=== PATIENT | male | born 1970 | race Caucasian/White ===

== ENCOUNTER 2017-12-19 17:18 | Emergency (ER) | payer BC ==
[~2017-12-19] VITALS: Ht 177.8 cm; Wt 98.3 kg
[2017-12-19 17:34] VITALS: TEMP 36.7; Ht 177.8 cm; Wt 98.3 kg
[2017-12-19] MEDS ORDERED: MoRPHine SULFATE 10 MG/ML CARP/VIAL IV STA (17:46)
[2017-12-19] MEDS ORDERED: ONDANSETRON INJ 2 MG/ML 2 ML VIAL IV STA (17:46)
[2017-12-19 18:15] LABS: ISTAT CREATININE 1.1 mg/dl (0.6-1.3); ISTAT IONIZED CALCIUM 1.18 mmol/l (1.12-1.32); ISTAT POTASSIUM 3.6 mEq/L (3.3-5.0)
[2017-12-19] MEDS ORDERED: RANI150T85 PO (18:15)
[2017-12-19] MEDS ORDERED: PRLSR20 PO (18:15)
--- NOTE | 2017-12-19 18:28 | DIAGNOSTIC IMAGING REPORT ---
R SHOULDER MIN 2 VIEWS ROUTINE CLINICAL HISTORY: Fall/shoulder pain trauma. Pain. COMPARISON: None. DISCUSSION: Separation right acromioclavicular joint of uncertain age. Glenohumeral joint is unremarkable. Main osseous structures are intact. There is no evidence for soft tissue swelling. IMPRESSION: Separation right acromioclavicular joint of uncertain age. Study is otherwise negative. The above report was generated using voice recognition software. It may contain grammatical, syntax or spelling errors. Electronically signed by: Bob Mcmahon M.D. 12/19/2017 6:26 PM Dictated Date/Time: 12/19/2017 6:26 PM
[2017-12-19] MEDS ORDERED: OPTIRAY 320 IV PRN (18:45)
--- NOTE | 2017-12-19 19:09 | DIAGNOSTIC IMAGING REPORT ---
ABD/PELVIS IV CONTRAST ONLY CT DOSE: 2654.91 mGy.cm HISTORY: Trauma. Pain. Fall/abdominal pain TECHNIQUE: Multiaxial CT images of the abdomen and pelvis were performed following the use of intravenous contrast. A dose lowering technique was utilized adhering to the principles of ALARA. COMPARISON STUDY: None. FINDINGS: Lung bases are clear. Mild fatty replacement of the liver. Gallbladder is negative for distention. Bowel pattern is nonobstructive. No acute abnormality. No free fluid is identified. Kidneys negative for hydronephrosis. No free fluid within the pelvic cul-de-sac. No acute process. IMPRESSION: No significant abnormality identified within the abdomen or pelvis. The above report was generated using voice recognition software. It may contain grammatical, syntax or spelling errors. Electronically signed by: Bob Mcmahon M.D. 12/19/2017 7:08 PM Dictated Date/Time: 12/19/2017 7:04 PM
--- NOTE | 2017-12-19 19:11 | DIAGNOSTIC IMAGING REPORT ---
CERVICAL SPINE W/O CT DOSE: HISTORY: Trauma. Pain. Fall/neck pain TECHNIQUE: Multiaxial CT images of the cervical spine were performed and reformatted in the sagittal and coronal plane without the use of contrast. A dose lowering technique was utilized adhering to the principles of ALARA. COMPARISON: None. FINDINGS: No fractures. No subluxation. Prevertebral soft tissues and the C1-C2 interval are intact. No pneumothorax. IMPRESSION: No fractures within the cervical spine.. Moderate degenerative change. The above report was generated using voice recognition software. It may contain grammatical, syntax or spelling errors. Electronically signed by: Bob Mcmahon M.D. 12/19/2017 7:10 PM Dictated Date/Time: 12/19/2017 7:08 PM
--- NOTE | 2017-12-19 19:14 | DIAGNOSTIC IMAGING REPORT ---
CT (CHEST) THORAX WITH CT DOSE: HISTORY: Trauma. Pain. Fall/right-sided chest wall pain TECHNIQUE: Multiaxial CT images of the chest were performed following the intravenous administration of contrast. A dose lowering technique was utilized adhering to the principles of ALARA. COMPARISON: None. FINDINGS: The lungs are clear. The mediastinal vascular structures are within normal limits. No mediastinal or hilar lymphadenopathy. No pleural effusion or pneumothorax. Limited views of the upper abdomen demonstrate a normal liver and spleen. IMPRESSION: No significant abnormality identified within the chest. The above report was generated using voice recognition software. It may contain grammatical, syntax or spelling errors. Electronically signed by: Bob Mcmahon M.D. 12/19/2017 7:13 PM Dictated Date/Time: 12/19/2017 7:11 PM
[2017-12-19] MEDS ORDERED: HYDR-5688 PO (19:23)
--- NOTE | 2017-12-19 19:24 | EMERGENCY ROOM VISIT NOTE ---
History First contact with patient: 17:38 Chief Complaint: NECK PAIN Stated Complaint: NECK/LOWER BACK/SHOULDER History of Present Illness The patient is a 47 year old male who presents to the Emergency Room with complaints of falling down 10-12 steps. Patient is complaining of right lateral neck pain, right shoulder pain, right lower rib and right sided abdominal pain. The patient denies any dizziness prior to the fall. The patient states that he is unsure what happened and he just slipped on the stop and fell sideways striking the right side on the steps as he fell. The patient denies any loss of consciousness he denies any head injury, visual changes or headache. The patient states most of his pain is in the right shoulder extending up into his right side of his neck. Within the patient also pointed to his right lower ribs and right upper abdomen as well for pain. The patient denies any mid or low back pain. The patient denies any chest pain or shortness of breath. The patient has not taken anything for pain. Review of Systems 10 system review was performed and was negative unless stated otherwise history of present illness. Past Medical/Surgical History Appendectomy, low back surgery, bilateral clavicle surgery Social History Smoking Status: Never Smoker Smokeless Tobacco Use: Yes Alcohol Use: none Drug Use: none Marital Status: Housing Status: lives with family Occupation Status: employed Current/Historical Medications Scheduled Omeprazole (Prilosec), 20 MG PO DAILY Ranitidine (Zantac), Unknown Dose PO BID Physical Exam Vital Signs Date Time Temp Pulse Resp B/P (MAP) Pulse Ox O2 Delivery O2 Flow Rate FiO2 12/19/17 17:34 36.7 90 20 151/90 97 Room Air Physical Exam GENERAL: 47-year-old white male appears in no acute distress. MENTAL STATUS: Patient is alert and oriented x3. HEAD: Atraumatic, nontender to palpation throughout. No bony abnormality noted. EYES: PERRLA. EOMs intact. EARS: Canals clear. TMs without hemotympanum noted. NECK: Supple, no lymphadenopathy noted. No carotid bruits noted. LUNGS: Clear auscultation without wheezes rales or rhonchi. CARDIAC: Regular rate and rhythm without murmur. Pulses is full and equal throughout. CHEST WALL: No gross bony deformity noted. No erythema or edema noted. The patient is tender to palpation over the right lateral chest wall. Remainder chest wall is nontender. ABDOMEN: Positive bowel sounds all 4 quadrants. Soft, tenderness palpation in the right upper quadrant otherwise nontender to palpation without organomegaly or masses. NEURO: Grossly intact. SPINE: Entire spine nontender to palpation. The patient is tenderness palpation over the right paravertebral region, left side nontender. Remainder of paravertebral region in the thoracic and lumbar spine is nontender. Did not assess range of motion. RIGHT SHOULDER: No gross bony deformity noted. There is a scar over the anterior aspect consistent with his prior distal clavicle surgery. Patient is tender to palpation over the anterior aspect of the shoulder joint. He is also tenderness to palpation over the superior aspect of the shoulder extending into the right side of the neck. SKIN: No ecchymosis, abrasions or laceration noted throughout. Medical Decision & Procedures ER Provider Diagnostic Interpretation: CT (CHEST) THORAX WITH CT DOSE: HISTORY: Trauma. Pain. Fall/right-sided chest wall pain TECHNIQUE: Multiaxial CT images of the chest were performed following the intravenous administration of contrast. A dose lowering technique was utilized adhering to the principles of ALARA. COMPARISON: None. FINDINGS: The lungs are clear. The mediastinal vascular structures are within normal limits. No mediastinal or hilar lymphadenopathy. No pleural effusion or pneumothorax. Limited views of the upper abdomen demonstrate a normal liver and spleen. IMPRESSION: No significant abnormality identified within the chest. The above report was generated using voice recognition software. It may contain grammatical, syntax or spelling errors. Electronically signed by: Bob Mcmahon M.D. 12/19/2017 7:13 PM CERVICAL SPINE W/O CT DOSE: HISTORY: Trauma. Pain. Fall/neck pain TECHNIQUE: Multiaxial CT images of the cervical spine were performed and reformatted in the sagittal and coronal plane without the use of contrast. A dose lowering technique was utilized adhering to the principles of ALARA. COMPARISON: None. FINDINGS: No fractures. No subluxation. Prevertebral soft tissues and the C1-C2 interval are intact. No pneumothorax. IMPRESSION: No fractures within the cervical spine.. Moderate degenerative change. The above report was generated using voice recognition software. It may contain grammatical, syntax or spelling errors. Electronically signed by: Bob Mcmahon M.D. ABD/PELVIS IV CONTRAST ONLY CT DOSE: 2654.91 mGy.cm HISTORY: Trauma. Pain. Fall/abdominal pain TECHNIQUE: Multiaxial CT images of the abdomen and pelvis were performed following the use of intravenous contrast. A dose lowering technique was utilized adhering to the principles of ALARA. COMPARISON STUDY: None. FINDINGS: Lung bases are clear. Mild fatty replacement of the liver. Gallbladder is negative for distention. Bowel pattern is nonobstructive. No acute abnormality. No free fluid is identified. Kidneys negative for hydronephrosis. No free fluid within the pelvic cul-de-sac. No acute process. IMPRESSION: No significant abnormality identified within the abdomen or pelvis. The above report was generated using voice recognition software. It may contain grammatical, syntax or spelling errors. Electronically signed by: Bob Mcmahon M.D. R SHOULDER MIN 2 VIEWS ROUTINE CLINICAL HISTORY: Fall/shoulder pain trauma. Pain. COMPARISON: None. DISCUSSION: Separation right acromioclavicular joint of uncertain age. Glenohumeral joint is unremarkable. Main osseous structures are intact. There is no evidence for soft tissue swelling. IMPRESSION: Separation right acromioclavicular joint of uncertain age. Study is otherwise negative. The above report was generated using voice recognition software. It may contain grammatical, syntax or spelling errors. Electronically signed by: Bob Mcmahon M.D. 12/19/2017 6:26 PM Laboratory Results Test 12/19/17 17:58 Bedside Hemoglobin 13.9 g/dl (14.0-18.0) Bedside Hematocrit 41 % (42-52) Bedside Sodium 141 mEq/L (135-144) Bedside Potassium 3.6 mEq/L (3.3-5.0) Bedside Chloride 102 mEq/L (101-112) Bedside Total CO2 24 mEq/l (24-31) Anion Gap 19.0 mmol/L (16-25) Bedside Blood Urea Nitrogen 18 mg/dl (7-18) Bedside Creatinine 1.1 mg/dl (0.6-1.3) Bedside Glucose (other) 130 mg/dl (70-99) Bedside Ionized Calcium (Marleni) 1.18 mmol/l (1.12-1.32) Medications Administered Medications (Trade) Dose Ordered Sig/Harleen Route Start Time Stop Time Status Last Admin Dose Admin Morphine Sulfate (MoRPHine SULFATE INJ) 6 mg NOW STAT IV 12/19/17 17:46 12/19/17 17:51 DC 12/19/17 18:47 6 MG Ondansetron HCl (Zofran Inj) 4 mg NOW STAT IV 12/19/17 17:46 12/19/17 17:51 DC 12/19/17 18:47 4 MG ED Course Patient was evaluated. IV access was obtained. I-STAT renal profile was ordered and were within normal limits therefore CTs could be obtained with IV contrast. The patient was given morphine 6 mg IV for pain and Zofran 4 mg IV push for associated nausea. X-ray of the right shoulder was ordered interpreted by the radiologist as above without any acute findings.. CT of the cervical spine, chest and abdomen was ordered interpreted by the radiologist as above without any acute findings. The patient was informed of all findings. The patient was offered an arm sling but he declined. The patient was given a Rothsay home pack. The patient was discharged home with a family member driving. Medical Decision Due to the patient following 10-12 steps and having pain in the right chest region as well as right upper abdomen I felt CTs of the chest and abdomen for trauma was indicated. Also he was having some pain in the right side of the neck therefore a CT of the cervical spine was ordered. I did not suspect any intracranial bleed since he did not hit his head or lose consciousness. X-rays of the right shoulder was ordered to evaluate for fracture. [place] Drug Monitoring Program Search Results: patient reviewed within database Medication Reconcilliation Current Medication List: was personally reviewed by me Blood Pressure Screening Patient's blood pressure: Elevated blood pressure Blood pressure disposition: Elevated BP felt to be situational Impression Primary Impression: Contusion of shoulder, right Additional Impressions: Acute strain of neck muscle Chest wall contusion Contusion of abdominal wall Departure Information Dispostion Home / Self-Care Condition GOOD Prescriptions Hydrocodone/Acetaminophen 5MG/325MG (Rothsay 5MG/325MG) Tab 1-2 TABLET PO Q6 Y for Pain, #14 TAB For Initial Treatment Prov: Ruby Mcmahon PA-C 12/19/17 Forms HOME CARE DOCUMENTATION FORM, IMPORTANT VISIT INFORMATION, WORK / SCHOOL INSTRUCTIONS Patient Instructions Bruises Contusions, My Fair Observer Additional Instructions Ice intermittently to the affected areas over the next 24 hours. Ibuprofen 600 mg every 6 hours with food for pain. Take Rothsay as needed for more severe pain. Do not drive while taking the Rothsay. If symptoms persist or worsen, follow-up with your family doctor for recheck. Problem Qualifiers Primary Impression: Contusion of shoulder, right Encounter type: initial encounter Qualified Codes: S40.011A - Contusion of right shoulder, initial encounter Additional Impressions: Acute strain of neck muscle Encounter type: initial encounter Qualified Codes: S16.1XXA - Strain of muscle, fascia and tendon at neck level, initial encounter Chest wall contusion Encounter type: initial encounter Laterality: right Qualified Codes: S20.211A - Contusion of right front wall of thorax, initial encounter Contusion of abdominal wall Encounter type: initial encounter Qualified Codes: S30.1XXA - Contusion of abdominal wall, initial encounter
[2017-12-19] MEDS ORDERED: NORCO 5/325MG HOME PACK PO ONE (19:30)
[2017-12-19 19:32] VITALS: BP 151/90; PULSE 90; O2SAT 97
== END 2017-12-19 19:33 | disposition home or self-care (01) ==
LOC: C.EDB 17:20 → C.EDD 19:33
DX: S16.1XXA Strain of muscle, fascia and tendon at neck level, initial encounter (principal); S40.011A Contusion of right shoulder, initial encounter; S20.211A Contusion of right front wall of thorax, initial encounter; S30.1XXA Contusion of abdominal wall, initial encounter; W10.9XXA Fall (on) (from) unspecified stairs and steps, initial encounter; Z79.899 Other long term (current) drug therapy

== ENCOUNTER 2022-11-18 21:58 | Inpatient (IN) ==
[2022-11-18] MEDS ORDERED: CEROVITE ADV FORMULA TAB PO STA (22:03)
[2022-11-18] MEDS ORDERED: SODIUM CHLORIDE 0.9% 1000ML 1,000 ML IV SCH (22:15)
[2022-11-18 22:28] LABS: iSTAT Creatinine 1.1 mg/dl (0.6-1.3); iSTAT Ionized Calcium 1.11 mmol/l (1.12-1.32); iSTAT Potassium 3.5 mmol/L (3.3-5.0)
[2022-11-18 22:31] LABS: Basophils # (auto) 0.05 K/uL (0-0.2); Basophils % (auto) 0.6 %; Eosinophils # (auto) 0.07 K/uL (0-0.50); Eosinophils % (auto) 0.8 %; Hematocrit (blood only) 42.6 % (42.0-52.0); Hemoglobin 15.1 g/dl (14.0-18.0); Immature Granulocytes # (auto) 0.03 K/uL (0.01-0.20); Immature Granulocytes % (auto) 0.3 %; Lymphocytes % (auto) 16.2 %; Mean Corpuscular Hgb Conc 35.4 g/dL (32.0-36.0); Mean Corpuscular Volume 87.5 fL (80.0-100.0); Mean Platelet Volume 12.2 fL (9.4-12.4); Monocytes % (auto) 5.8 %; Neutrophils # (auto) 6.58 K/uL (1.40-6.50); Neutrophils % (auto) 76.3 %; Platelet Count 148 K/uL (130-400); RDW Coefficient of Variation 11.7 % (11.5-14.5); RDW Standard Deviation 37.5 fL (36.4-46.3); Red Blood Count 4.87 M/uL (4.70-6.10); White Blood Count 8.63 K/ul (4.8-10.8)
[2022-11-18 22:51] LABS: Albumin Globulin Ratio 1.5 (0.9-2); Albumin Level 4.2 gm/dl (3.4-5.0); BUN Creatinine Ratio 16.3 (10-20); Bilirubin,Total 0.6 mg/dl (0.2-1.0); Creatinine Clr Calc Pharmacy 94.1 ml/min; Est GFR (African American) 109.7 ml/min; Est GFR (Non-African American) 94.6 ml/min; Globulin 2.8 gm/dl (2.5-4.0); Magnesium 2.1 mg/dl (1.7-2.4); Potassium 3.6 mmol/L (3.5-5.1)
[2022-11-18] MEDS ORDERED: OPTIRAY 350 100ml IV ONE (22:52)
[2022-11-18 22:57] LABS: Troponin I High Sensitivity 3.7 pg/ml (0-20)
[2022-11-18] MEDS: THIAMINE HCL 100 MG, FOLIC ACID 1 MG in SODIUM CHLORIDE 0.9% 1000ML 1,000 ML IV SCH (23:00)
--- NOTE | 2022-11-18 23:15 | Emergency Department Note ---
History of Present Illness General Chief complaint: Seizure Stated complaint: ETOH, Semi Responsive Time Seen by Provider: 11/18/22 22:01 History of Present Illness This 51-year-old alcoholic presents to the ER for seizure with frequent falls. Patient is intoxicated and difficult to obtain history. EMS states he is a diabetic and blood sugar was 200. He is apparently falling much more often. He drinks daily. No known alcohol withdrawal seizures. No seizure disorder. Patient is yelling at me and not making much sense. He is moving all extremities. Home Medications Medication Instructions Recorded Confirmed Type buspirone 15 mg tablet 15 mg PO TID 11/19/22 11/19/22 History citalopram 10 mg tablet 10 mg PO DAILY 11/19/22 11/19/22 History citalopram 20 mg tablet 20 mg PO DAILY 11/19/22 11/19/22 History dulaglutide 4.5 mg/0.5 mL 4.5 mg subcut WK 11/19/22 11/19/22 History subcutaneous pen injector (Trulicity) empagliflozin 25 mg tablet 25 mg PO DAILY 11/19/22 11/19/22 History (Jardiance) famotidine 20 mg tablet 20 mg PO DAILY 11/19/22 11/19/22 History insulin glargine 100 unit/mL 35 unit subcut QDD 11/19/22 11/19/22 History subcutaneous solution (Lantus U-100 Insulin) lisinopril 5 mg tablet 5 mg PO DAILY 11/19/22 11/19/22 History meloxicam 7.5 mg tablet 7.5 - 15 mg PO DAILY 11/19/22 11/19/22 History omeprazole 20 mg tablet,delayed 20 mg PO DAILYBB 11/19/22 11/19/22 History release Allergies Allergy/AdvReac Type Severity Reaction Status Date / Time No Known Allergies Allergy Unverified 11/12/22 14:53 Review of Systems A total of 10 systems reviewed and were otherwise negative Physical Exam Vital Signs Vital Signs - 24 hr 11/18/22 21:58 11/18/22 22:18 11/18/22 22:01 Temperature 36.5 C Temperature Source Oral Pulse Rate 86 75 Pulse Rate from SpO2 Sensor Respiratory Rate 18 Respiratory Effort / Characteristics Non-Labored Respiratory Depth Normal Blood Pressure 114/71 Blood Pressure Mean 85 Pulse Oximetry 96 98 Oxygen Delivery Method Room Air Room Air Sepsis Recent Fever Within 48 Hours No Sepsis New/Unexplained Change in Mental Status No Sepsis Action Taken by Nursing No Action Required 11/18/22 22:02 11/18/22 22:02 11/18/22 22:30 Temperature Temperature Source Pulse Rate 73 Pulse Rate from SpO2 Sensor 72 Respiratory Rate 12 Respiratory Effort / Characteristics Respiratory Depth Blood Pressure 114/71 120/77 Blood Pressure Mean 85 91 Pulse Oximetry 96 Oxygen Delivery Method Sepsis Recent Fever Within 48 Hours Sepsis New/Unexplained Change in Mental Status Sepsis Action Taken by Nursing 11/18/22 22:30 11/18/22 23:00 11/18/22 23:00 Temperature Temperature Source Pulse Rate 83 83 Pulse Rate from SpO2 Sensor 81 83 Respiratory Rate 21 18 Respiratory Effort / Characteristics Respiratory Depth Blood Pressure 114/72 Blood Pressure Mean 86 Pulse Oximetry 100 97 Oxygen Delivery Method Sepsis Recent Fever Within 48 Hours Sepsis New/Unexplained Change in Mental Status Sepsis Action Taken by Nursing VITALS: Vitals are noted on the nurse's note and reviewed by myself. Vital signs stable. GENERAL: White male with EtOH odor yells and swings with sternal rub, in no acute distress, nondiaphoretic, well-developed well-nourished. SKIN: The skin was without rashes, erythema, edema, or bruising. There is no tenting of the skin. Capillary reflex less than 2 seconds. HEAD: Normocephalic atraumatic. EARS: External auditory canals clear, tympanic membranes pearly wolff without erythema or effusion bilaterally. EYES: Pupils equal round and reactive to light and accommodation. Conjunctivae with injection, sclerae without icterus. Extraocular movements intact. NOSE: Patent, turbinates without inflammation or discharge. No sinus tender ness. MOUTH: Mucous membranes moist. Pharynx without erythema or exudate. Uvula midline. Airway patent. Tongue does not deviate. NECK: Supple without nuchal rigidity. No lymphadenopathy. No thyromegaly. Cervical spine is nontender. No JVD. HEART: Regular rate and rhythm LUNGS: Clear to auscultation bilaterally without wheezes, rales or rhonchi. No retractions or accessory muscle use. ABDOMEN: Positive bowel sounds x 4. Normal tympanic percussion. Soft, nontender, without masses or organomegaly. Seo sign negative. No guarding or rebound tenderness. No CVA tenderness MUSCULOSKELETAL: No muscle atrophy, erythema, or edema noted. NEURO: Patient is intoxicated. Once he was more sober he is alert and oriented to person place and time. Normal sensation to light and sharp touch. No focal neurological deficits. Course Administered Medications Discontinued Medications Sodium Chloride (Nss 1000ml) 1,000 mls @ 999 mls/hr IV .Q1H1M LEANAN Stop: 11/18/22 23:15 Last Infusion: 11/18/22 23:24 Dose: 0 mls/hr Documented By: Admin: 11/18/22 22:20 Dose: 999 mls/hr Documented By: MIKKI Thiamine HCl 100 mg/ Folic (Acid 1 mg/ Sodium Chloride) 1,001.2 mls @ 1,011.2 mls/hr IV .Q1H LEANNA; Protocol Stop: 12/18/22 22:14 Last Admin: 11/19/22 01:02 Dose: Not Given Documented By: Infusion: 11/18/22 23:57 Dose: 0 mls/hr Documented By: Admin: 11/18/22 23:00 Dose: 1,011.2 mls/hr Documented By: MIKAYLA Ioversol (Optiray 350 100ml) 100 ml IV ONCE ONE Stop: 11/18/22 22:53 Last Admin: 11/18/22 22:53 Dose: 86 ml Documented By: AIDE Medical Decision Making Medical Records Attestation: I reviewed the patient's medical records. Home Medications Current Medication List: was personally reviewed by me Laboratory Data Attestation: I reviewed the patient's lab results. 11/18/22 22:10 11/18/22 22:10 Lab Results 11/18/22 11/18/22 11/18/22 Range/Units 22:10 22:10 22:10 WBC 8.63 (4.8-10.8) K/ul RBC 4.87 (4.70-6.10) M/uL Hgb 15.1 (14.0-18.0) g/dl POC Hgb (14.0-18.0) g/dl Hct 42.6 (42.0-52.0) % POC Hct (42-52) % MCV 87.5 (80.0-100.0) fL MCH 31.0 (25.0-34.0) pg MCHC 35.4 (32.0-36.0) g/dL RDW Std Deviation 37.5 (36.4-46.3) fL RDW Coeff of Janice 11.7 (11.5-14.5) % Plt Count 148 (130-400) K/uL MPV 12.2 (9.4-12.4) fL Immature Gran % (Auto) 0.3 % Neut % (Auto) 76.3 % Lymph % (Auto) 16.2 % [place] % (Auto) 5.8 % Eos % (Auto) 0.8 % Baso % (Auto) 0.6 % Neut # (Auto) 6.58 H (1.40-6.50) K/uL Lymph # (Auto) 1.40 (1.2-3.4) K/uL [place] # (Auto) 0.50 (0.11-0.59) K/uL Eos # (Auto) 0.07 (0-0.50) K/uL Baso # (Auto) 0.05 (0-0.2) K/uL Immature Gran # (Auto) 0.03 (0.01-0.20) K/uL POC Sodium (135-144) mmol/L Sodium 138 (136-145) mmol/L POC Potassium (3.3-5.0) mmol/L Potassium 3.6 (3.5-5.1) mmol/L POC Chloride (101-112) mmol/L Chloride 99 (98-107) mmol/L Carbon Dioxide 28 (21-32) mmol/L POC Total CO2 (24-31) mmol/L Anion Gap 11 (3-11) POC Anion Gap (16-25) mmol/L POC BUN (7-18) mg/dl BUN 15 (6-23) mg/dl Creatinine 0.92 (0.6-1.4) mg/dl POC Creatinine (0.6-1.3) mg/dl Est Cr Clr Drug Dosing 94.1 ml/min Est GFR ( Amer) 109.7 ml/min Est GFR (Non-Af Amer) 94.6 ml/min BUN/Creatinine Ratio 16.3 (10-20) Glucose 177 H (70-99(Fasting)) mg/dl POC Glucose (other) (70-99) mg/dl Calcium 9.0 (8.6-10.3) mg/dl POC Ioniz Calcium Marleni (1.12-1.32) mmol/l Magnesium 2.1 (1.7-2.4) mg/dl Total Bilirubin 0.6 (0.2-1.0) mg/dl AST 23 (13-39) U/L ALT 29 (7-52) U/L Alkaline Phosphatase 63 (34-104) U/L Ammonia (18-72) umol/L Total Creatine Kinase 76 (30-223) U/L Troponin I High Sens 3.7 (0-20) pg/ml Total Protein 7.0 (6.0-8.3) gm/dl Albumin 4.2 (3.4-5.0) gm/dl Globulin 2.8 (2.5-4.0) gm/dl Albumin/Globulin Ratio 1.5 (0.9-2) Ethyl Alcohol mg/dL 155.8 H (<10.0) mg/dl SARS-CoV-2 (PCR) (Negative) 11/18/22 11/18/22 11/19/22 Range/Units 22:16 22:38 00:11 WBC (4.8-10.8) K/ul RBC (4.70-6.10) M/uL Hgb (14.0-18.0) g/dl POC Hgb 15.0 (14.0-18.0) g/dl Hct (42.0-52.0) % POC Hct 44 (42-52) % MCV (80.0-100.0) fL MCH (25.0-34.0) pg MCHC (32.0-36.0) g/dL RDW Std Deviation (36.4-46.3) fL RDW Coeff of Janice (11.5-14.5) % Plt Count (130-400) K/uL MPV (9.4-12.4) fL Immature Gran % (Auto) % Neut % (Auto) % Lymph % (Auto) % [place] % (Auto) % Eos % (Auto) % Baso % (Auto) % Neut # (Auto) (1.40-6.50) K/uL Lymph # (Auto) (1.2-3.4) K/uL [place] # (Auto) (0.11-0.59) K/uL Eos # (Auto) (0-0.50) K/uL Baso # (Auto) (0-0.2) K/uL Immature Gran # (Auto) (0.01-0.20) K/uL POC Sodium 139 (135-144) mmol/L Sodium (136-145) mmol/L POC Potassium 3.5 (3.3-5.0) mmol/L Potassium (3.5-5.1) mmol/L POC Chloride 97 L (101-112) mmol/L Chloride (98-107) mmol/L Carbon Dioxide (21-32) mmol/L POC Total CO2 27 (24-31) mmol/L Anion Gap (3-11) POC Anion Gap 20.0 (16-25) mmol/L POC BUN 15 (7-18) mg/dl BUN (6-23) mg/dl Creatinine (0.6-1.4) mg/dl POC Creatinine 1.1 (0.6-1.3) mg/dl Est Cr Clr Drug Dosing ml/min Est GFR ( Amer) ml/min Est GFR (Non-Af Amer) ml/min BUN/Creatinine Ratio (10-20) Glucose (70-99(Fasting)) mg/dl POC Glucose (other) 179 H (70-99) mg/dl Calcium (8.6-10.3) mg/dl POC Ioniz Calcium Marleni 1.11 L (1.12-1.32) mmol/l Magnesium (1.7-2.4) mg/dl Total Bilirubin (0.2-1.0) mg/dl AST (13-39) U/L ALT (7-52) U/L Alkaline Phosphatase (34-104) U/L Ammonia 30.0 (18-72) umol/L Total Creatine Kinase (30-223) U/L Troponin I High Sens (0-20) pg/ml Total Protein (6.0-8.3) gm/dl Albumin (3.4-5.0) gm/dl Globulin (2.5-4.0) gm/dl Albumin/Globulin Ratio (0.9-2) Ethyl Alcohol mg/dL (<10.0) mg/dl SARS-CoV-2 (PCR) NEGATIVE (Negative) Imaging Data Attestation: I personally reviewed and interpreted this imaging study as follows: Radiologist's Impression: Abdomen/Pelvis CT 11/18/22 22:04 Exam(s): CT ABDOMEN + PELVIS With Contrast IV Amt: 86 ML OPTIRAY 350 EXAM: CT Abdomen and Pelvis With Intravenous Contrast CLINICAL HISTORY: Reason for exam: Trauma. TECHNIQUE: Axial computed tomography images of the abdomen and pelvis with intravenous contrast. Automated exposure control was utilized for the study. A dose lowering technique was utilized adhering to the principles of ALARA. CONTRAST: Patient received 86 ML OPTIRAY 350 of IV contrast COMPARISON: 12/19/2017. FINDINGS: Lung bases: Minimal posterior dependent atelectasis. ABDOMEN: Liver: Unremarkable. No mass. Gallbladder and bile ducts: Unremarkable. No calcified stones. No ductal dilation. Pancreas: Unremarkable. No mass. No ductal dilation. Spleen: Unremarkable. No splenomegaly. Adrenals: Unremarkable. No mass. Kidneys and ureters: Unremarkable. No solid mass. No hydronephrosis. Stomach and bowel: Increased fecal debris within the colon consistent with mild constipation. No obstruction. No mucosal thickening. PELVIS: Appendix: Nonvisualized appendix with no inflammation to suggest appendicitis. Bladder: Slightly over distended urinary bladder. Reproductive: Unremarkable as visualized. ABDOMEN and PELVIS: Intraperitoneal space: Unremarkable. No free air. No significant fluid collection. Bones/joints: Multilevel degenerative disease throughout the lumbar spine, more severe from L4-S1. No substantial scoliosis. Normal lordosis. Normal alignment with no acute fracture. Soft tissues: Unremarkable. Vasculature: Unremarkable. No abdominal aortic aneurysm. Lymph nodes: Unremarkable. No enlarged lymph nodes. IMPRESSION: No evidence of visceral or intra-abdominal injury. Electronically signed by: Tameka Ren MD 11/18/22 23:[address] 11/18/22 22:04 Exam(s): CT C SPINE EXAM: CT Cervical Spine Without Intravenous Contrast CLINICAL HISTORY: Reason for exam: Trauma. TECHNIQUE: Axial computed tomography images of the cervical spine without intravenous contrast. Automated exposure control was utilized for the study. A dose lowering technique was utilized adhering to the principles of ALARA. COMPARISON: 12/11/2017. FINDINGS: Vertebrae: Degenerative arthrosis at anterior C1-C2 articulation, otherwise normal odontoid process. Mild spondylosis/degenerative disease from C5-C7. No central canal stenosis. No acute fracture. Normal cervical lordosis. Discs/spinal canal/neural foramina: Multilevel bilateral apophyseal hypertrophy, right more than left and contributing to variable degrees of neuroforaminal encroachment. Soft tissues: Unremarkable. IMPRESSION: Nonspecific degenerative disease as described with no acute fracture or subluxation. Electronically signed by: Tameka Ren MD 11/18/22 23:[address] 11/18/22 22:04 Exam(s): CT CHEST With Contrast IV Amt: 86 ML OPTIRAY 350 EXAM: CT Chest With Intravenous Contrast CLINICAL HISTORY: Reason for exam: Trauma. TECHNIQUE: Axial computed tomography images of the chest with intravenous contrast. Automated exposure control was utilized for the study. A dose lowering technique was utilized adhering to the principles of ALARA. CONTRAST: Patient received 86 ML OPTIRAY 350 of IV contrast COMPARISON: 12/11/2017. FINDINGS: Lungs: Minimal posterior dependent atelectasis otherwise normal lung parenchyma. Pleural space: Unremarkable. No pneumothorax. No significant effusion. Heart: Unremarkable. No cardiomegaly. No significant pericardial effusion. No significant coronary artery calcifications. Bones/joints: Unremarkable. No acute fracture. No dislocation. Soft tissues: Unremarkable. Vasculature: Unremarkable. No thoracic aortic aneurysm. Lymph nodes: Unremarkable. No enlarged lymph nodes. IMPRESSION: 1. Minimal posterior dependent atelectasis otherwise no acute cardiopulmonary disease. 2. No pleural effusion or pneumothorax.. Electronically signed by: Tameka Ren MD 11/18/22 23:[address] 11/18/22 22:04 Exam(s): CT HEAD Without Contrast EXAM: CT Head Without Intravenous Contrast CLINICAL HISTORY: Reason for exam: Trauma. TECHNIQUE: Axial computed tomography images of the head/brain without intravenous contrast. Automated exposure control was utilized for the study. A dose lowering technique was utilized adhering to the principles of ALARA. COMPARISON: None. FINDINGS: Brain: Unremarkable. No hemorrhage. No significant white matter disease. No edema. Ventricles: Unremarkable. No ventriculomegaly. Bones/joints: Unremarkable. No acute fracture. Soft tissues: Unremarkable. Sinuses: Unremarkable as visualized. No acute sinusitis. Mastoid air cells: Unremarkable as visualized. No mastoid effusion. IMPRESSION: No acute intracranial process. Electronically signed by: Tameka Ren MD 11/18/22 23:23 PM MDM Narrative Prior records/ancillary studies reviewed. Triage Nursing notes reviewed. Additional history obtained from EMS. The patient's history was concerning for altered mental status and a possible alcohol overdose. Differential diagnosis: Etiologies such as alcohol intoxication, toxicologic, infection, hypoglycemia, electrolyte abnormalities, cardiac sources, intracerebral event, neurologic, as well as others were entertained. Physical examination: As above. The patient is clinically intoxicated. no trauma noted. ER treatment provided: Monitoring An order was placed for continuous cardiac monitoring. The monitor shows a rate of 60-100 with a sinus rhythm. Aspiration and seizure precautions IV fluids, banana bag was ordered The patient was frequently reassessed. Diagnostic interpretation by me: Cardiac monitoring did not reveal any evidence of dysrhythmia. EKG ordered for seizure EKG: Normal sinus, normal intervals, no acute ST-T wave changes. Impression normal sinus rhythm independent interpreted by myself I think arrhythmia is unlikely. EKG shows normal sinus rhythm with no interval abnormalities such as QT prolongation or WPW. There are no findings to suggest Brugada syndrome. Cardiac monitoring in the emergency department reveals no tachycardic or bradycardic dysrhythmia. Hypertrophic cardiomyopathy was considered but there are no clear historical elements pointing toward this. EKG is not suggestive. The QRS voltage is not extremely large and there are no suggestive Q waves. The labs Independently Interpreted by myself revealed no worrisome leukocytosis, hyperglycemia without DKA. The patient's blood alcohol level was 155 mg/dL. Ammonia level 33 Imaging studies: Head CT negative for intracranial bleed. CTs of the neck chest abdomen pelvis were also reviewed with no acute findings noted Chest x-ray with no acute consolidation, pneumothorax or free air per my independent interpretation Patient was first seen at 2200 and observation time began at 2200 and was necessary in order to determine any infectious, toxicologic or traumatic problem. Upon reevaluation, 2 hours of observation feel that the patient should be admitted. Seizure form was filled out and faxed off to the state as patient had a seizure tonight per the daughter. The daughter is also concerned about the patient's mental health as he apparently is making statements that he wanted to hurt himself. Patient did not admit this to me. Admitting team was made aware. This appears to be consistent with alcoholism who had a seizure tonight. Patient has been falling more frequently and advanced imaging was ordered. Labs and diagnostics were independent interpreted by myself. Radiology read the CAT scans. Patient is agreeable treatment plan of admission. Medicine was consulted and the case was discussed. He will be admitted for his alcoholism and seizure tonight. By the evaluation outlined above emergent etiologies such as infection, hypoglycemia, electrolyte abnormalities, cardiac sources, as well as others were deemed relatively unlikely. The chart was completed utilizing [employer] Speech voice recognition software. Grammatical errors, random word insertions, pronoun errors, and incomplete sentences are an occassional consequence of this system due to software limitations, ambient noise, and hardware issues. Any formal questions or concerns about the content, text, or information contained within the body of this dictation should be directly addressed to the physician assistant manager for clarification. Impression & Plan Acute alcoholism, Fall, Seizure Discharge Plan Visit Data Chief Complaint: Seizure Stated Complaint: ETOH, Semi Responsive ED Provider: Shahida Simmons ED Midlevel Provider: iGuliana Barrios Discharge Problem: Acute alcoholism, Fall, Seizure Patient Disposition: Admitted As Inpatient Condition: Fair Forms Stand Alone Forms: [facility] Prescriptions Prescriptions: No Action citalopram 10 mg Tablet 10 mg PO DAILY Rx Instructions: take with 20mg citalopram 20 mg Tablet 20 mg PO DAILY Rx Instructions: take with 10mg famotidine 20 mg Tablet 20 mg PO DAILY buspirone 15 mg Tablet 15 mg PO TID Jardiance 25 mg Tablet 25 mg PO DAILY insulin glargine [Lantus U-100 Insulin] 100 unit/mL Solution 35 unit SUBCUT QDD meloxicam 7.5 mg Tablet 7.5 - 15 mg PO DAILY lisinopril 5 mg Tablet 5 mg PO DAILY omeprazole 20 mg Tablet,Delayed Release (Dr/Ec) 20 mg PO DAILYBB Trulicity 4.5 mg/0.5 mL Pen Injector 4.5 mg SUBCUT WK Referrals Referrals: Erik Del Castillo MD [Primary Care Provider] -
--- NOTE | 2022-11-18 23:24 | CT Scan Report ---
Exam(s): CT HEAD Without Contrast EXAM: CT Head Without Intravenous Contrast CLINICAL HISTORY: Reason for exam: Trauma. TECHNIQUE: Axial computed tomography images of the head/brain without intravenous contrast. Automated exposure control was utilized for the study. A dose lowering technique was utilized adhering to the principles of ALARA. COMPARISON: None. FINDINGS: Brain: Unremarkable. No hemorrhage. No significant white matter disease. No edema. Ventricles: Unremarkable. No ventriculomegaly. Bones/joints: Unremarkable. No acute fracture. Soft tissues: Unremarkable. Sinuses: Unremarkable as visualized. No acute sinusitis. Mastoid air cells: Unremarkable as visualized. No mastoid effusion. IMPRESSION: No acute intracranial process. Electronically signed by: Tameka Ren MD 11/18/22 23:23 PM
--- NOTE | 2022-11-18 23:28 | CT Scan Report ---
Exam(s): CT C SPINE EXAM: CT Cervical Spine Without Intravenous Contrast CLINICAL HISTORY: Reason for exam: Trauma. TECHNIQUE: Axial computed tomography images of the cervical spine without intravenous contrast. Automated exposure control was utilized for the study. A dose lowering technique was utilized adhering to the principles of ALARA. COMPARISON: 12/11/2017. FINDINGS: Vertebrae: Degenerative arthrosis at anterior C1-C2 articulation, otherwise normal odontoid process. Mild spondylosis/degenerative disease from C5-C7. No central canal stenosis. No acute fracture. Normal cervical lordosis. Discs/spinal canal/neural foramina: Multilevel bilateral apophyseal hypertrophy, right more than left and contributing to variable degrees of neuroforaminal encroachment. Soft tissues: Unremarkable. IMPRESSION: Nonspecific degenerative disease as described with no acute fracture or subluxation. Electronically signed by: Tameka Ren MD 11/18/22 23:27 PM
--- NOTE | 2022-11-18 23:30 | CT Scan Report ---
Exam(s): CT CHEST With Contrast IV Amt: 86 ML OPTIRAY 350 EXAM: CT Chest With Intravenous Contrast CLINICAL HISTORY: Reason for exam: Trauma. TECHNIQUE: Axial computed tomography images of the chest with intravenous contrast. Automated exposure control was utilized for the study. A dose lowering technique was utilized adhering to the principles of ALARA. CONTRAST: Patient received 86 ML OPTIRAY 350 of IV contrast COMPARISON: 12/11/2017. FINDINGS: Lungs: Minimal posterior dependent atelectasis otherwise normal lung parenchyma. Pleural space: Unremarkable. No pneumothorax. No significant effusion. Heart: Unremarkable. No cardiomegaly. No significant pericardial effusion. No significant coronary artery calcifications. Bones/joints: Unremarkable. No acute fracture. No dislocation. Soft tissues: Unremarkable. Vasculature: Unremarkable. No thoracic aortic aneurysm. Lymph nodes: Unremarkable. No enlarged lymph nodes. IMPRESSION: 1. Minimal posterior dependent atelectasis otherwise no acute cardiopulmonary disease. 2. No pleural effusion or pneumothorax.. Electronically signed by: Tameka Ren MD 11/18/22 23:30 PM
--- NOTE | 2022-11-18 23:33 | CT Scan Report ---
Exam(s): CT ABDOMEN + PELVIS With Contrast IV Amt: 86 ML OPTIRAY 350 EXAM: CT Abdomen and Pelvis With Intravenous Contrast CLINICAL HISTORY: Reason for exam: Trauma. TECHNIQUE: Axial computed tomography images of the abdomen and pelvis with intravenous contrast. Automated exposure control was utilized for the study. A dose lowering technique was utilized adhering to the principles of ALARA. CONTRAST: Patient received 86 ML OPTIRAY 350 of IV contrast COMPARISON: 12/19/2017. FINDINGS: Lung bases: Minimal posterior dependent atelectasis. ABDOMEN: Liver: Unremarkable. No mass. Gallbladder and bile ducts: Unremarkable. No calcified stones. No ductal dilation. Pancreas: Unremarkable. No mass. No ductal dilation. Spleen: Unremarkable. No splenomegaly. Adrenals: Unremarkable. No mass. Kidneys and ureters: Unremarkable. No solid mass. No hydronephrosis. Stomach and bowel: Increased fecal debris within the colon consistent with mild constipation. No obstruction. No mucosal thickening. PELVIS: Appendix: Nonvisualized appendix with no inflammation to suggest appendicitis. Bladder: Slightly over distended urinary bladder. Reproductive: Unremarkable as visualized. ABDOMEN and PELVIS: Intraperitoneal space: Unremarkable. No free air. No significant fluid collection. Bones/joints: Multilevel degenerative disease throughout the lumbar spine, more severe from L4-S1. No substantial scoliosis. Normal lordosis. Normal alignment with no acute fracture. Soft tissues: Unremarkable. Vasculature: Unremarkable. No abdominal aortic aneurysm. Lymph nodes: Unremarkable. No enlarged lymph nodes. IMPRESSION: No evidence of visceral or intra-abdominal injury. Electronically signed by: Tameka Ren MD 11/18/22 23:32 PM
[2022-11-19] MEDS: THIAMINE HCL 100 MG, FOLIC ACID 1 MG in SODIUM CHLORIDE 0.9% 1000ML 1,000 ML IV SCH (01:02)
[2022-11-19 01:34] LABS: Appearance Urine Clear (Clear); Bilirubin Urine Negative (Negative); Blood Urine Negative (Negative); Color Urine Yellow; Glucose Urine UA 3+ (Negative); Ketones Urine 2+ (Negative); Leukocyte Esterase Urine Negative (Negative); Nitrite Urine Negative (Negative); Protein Urine Negative (Negative); Specific Gravity Urine > 1.045 (1.000-1.030); Urobilinogen Urine Negative (Negative); pH Urine 5.5 (4.5-7.5)
[2022-11-19 02:04] LABS: Amphetamines+Metham, Urine Neg (Neg); Barbiturates, Urine Neg (Neg); Benzodiazepine, Urine Neg (Neg); Cocaine, Urine Neg (Neg); MDMA (Ecstacy), Urine Neg (Neg); Methadone, Urine Neg (Neg); Opiate, Urine Neg (Neg); Phencyclidine, Urine Neg (Neg)
--- NOTE | 2022-11-19 02:21 | History & Physical Report ---
Date of Service November 19, 2022 Assessment & Plan (1) Seizure: Plan: Possible alcohol withdrawal seizures HTN, stable DM2 insulin requiring suboptimal control as of recent hemoglobin A1c of 9.27 June 2022 hx GERD Possible suicidality, history mood disorder Medical telemetry Seizure precautions Ativan as needed for active seizures EEG, MRI brain for seizure work-up Neurology consult Re: New onset seizures Psychiatry consult once patient more awake re: possible suicidality Suicide precautions until patient seen by Psychiatry. Basal bolus insulin adjusted for n.p.o. status for now while patient intoxicated, ISS BG goal 1 10-1 40, update hemoglobin A1c DVT prophylaxis. Lovenox subcu Full code Patient daughter requesting updates from providers. Ms. Madiha Leigh, contact #[phone]. Text document was generated using [employer] voice recognition software. It may contain grammatical or spelling errors. Kindly contact undersigned for clarification of any documentation item in question. History of Present Illness Chief Complaint: Seizures as per family Primary Care Provider: Cachorro Lord MD History obtained from patient, family, and records. History from patient secondary to intoxicated state. Medical history significant for hypertension, DM2 insulin requiring, GERD, mood disorder, alcohol abuse. Patient was at daughter's home yesterday when he suddenly slumped over and was noted to have 2 episodes of shaking episodes possible seizures as per daughter. No tongue biting or incontinence. No prior episodes as per daughter. Patient complaining of headache symptoms. Patient daughter concerned about possible self-harm as patient had told her that he "was going camping and and that she would never see him again." No prior suicidal attempt as per daughter. Patient brought to the ER for evaluation. 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[employer] Allergies Allergy/AdvReac Type Severity Reaction Status Date / Time No Known Allergies Allergy Unverified 11/12/22 14:53 Home Medications Medication Instructions Recorded Confirmed Type buspirone 15 mg tablet 15 mg PO TID 11/19/22 11/19/22 History citalopram 10 mg tablet 10 mg PO DAILY 11/19/22 11/19/22 History citalopram 20 mg tablet 20 mg PO DAILY 11/19/22 11/19/22 History dulaglutide 4.5 mg/0.5 mL 4.5 mg subcut WK 11/19/22 11/19/22 History subcutaneous pen injector (Trulicity) empagliflozin 25 mg tablet 25 mg PO DAILY 11/19/22 11/19/22 History (Jardiance) famotidine 20 mg tablet 20 mg PO DAILY 11/19/22 11/19/22 History insulin glargine 100 unit/mL 35 unit subcut QDD 11/19/22 11/19/22 History subcutaneous solution (Lantus U-100 Insulin) lisinopril 5 mg tablet 5 mg PO DAILY 11/19/22 11/19/22 History meloxicam 7.5 mg tablet 7.5 - 15 mg PO DAILY 11/19/22 11/19/22 History omeprazole 20 mg tablet,delayed 20 mg PO DAILYBB 11/19/22 11/19/22 History release Past Med/Surg History Social History Smoking Status: Never smoker Hx Alcohol Use: Yes Alcohol type: hard liquor Hx Substance Use: No Preferred Language: Irish Communication Ability: Effective Fisheries Inspector Required: No Beliefs That Will Affect Care: None Current Living Situation: Family Current Living Situation Comment: lives with daughter Other Information That Helps Us Care for You: No Feels Safe at Home: Yes Safety Concerns: Feels Safe At This Time Assistive Devices: None Review of Systems Review of Systems: Could not be reliably obtained secondary to intoxicated state Physical Exam Physical Exam: GENERAL: Intoxicated, mumbles some answers to some questions no respiratory distress, alcoholic fetor SKIN: Normal color, warm HEENT: [place] palpebral conjunctivae, no ptosis, dry buccal mucosa NECK : Supple, no tenderness CHEST : Decreased breath sounds, no tenderness HEART : RRR, no obvious murmurs ABDOMEN: Some distention, nontender EXTREMITIES : No LE swelling/tenderness, no other conspicuous deformities noted NEUROLOGIC : Intoxicated, no facial asymmetry, gait and stance not assessed Results & Data Results & Data Vital Signs (Past 12 Hours) Vital Signs Temp Pulse Resp BP Pulse Ox O2 Del Method 11/18/22 23:00 83 18 97 11/18/22 23:00 114/72 11/18/22 22:30 83 21 100 11/18/22 22:30 120/77 11/18/22 22:02 73 12 96 11/18/22 22:02 114/71 11/18/22 22:01 75 11/18/22 22:18 98 Room Air 11/18/22 21:58 36.5 C 86 18 114/71 96 Room Air Laboratory Results Laboratory Results WBC 8.63 K/ul (4.8-10.8) 11/18/22 22:10 RBC 4.87 M/uL (4.70-6.10) 11/18/22 22:10 Hgb 15.1 g/dl (14.0-18.0) 11/18/22 22:10 POC Hgb 15.0 g/dl (14.0-18.0) 11/18/22 22:16 Hct 42.6 % (42.0-52.0) 11/18/22 22:10 POC Hct 44 % (42-52) 11/18/22 22:16 MCV 87.5 fL (80.0-100.0) 11/18/22 22:10 MCH 31.0 pg (25.0-34.0) 11/18/22 22:10 MCHC 35.4 g/dL (32.0-36.0) 11/18/22 22:10 RDW Std Deviation 37.5 fL (36.4-46.3) 11/18/22 22:10 RDW Coeff of Janice 11.7 % (11.5-14.5) 11/18/22 22:10 Plt Count 148 K/uL (130-400) 11/18/22 22:10 MPV 12.2 fL (9.4-12.4) 11/18/22 22:10 Immature Gran % (Auto) 0.3 % 11/18/22 22:10 Neut % (Auto) 76.3 % 11/18/22 22:10 Lymph % (Auto) 16.2 % 11/18/22 22:10 [place] % (Auto) 5.8 % 11/18/22 22:10 Eos % (Auto) 0.8 % 11/18/22 22:10 Baso % (Auto) 0.6 % 11/18/22 22:10 Neut # (Auto) 6.58 K/uL (1.40-6.50) H 11/18/22 22:10 Lymph # (Auto) 1.40 K/uL (1.2-3.4) 11/18/22 22:10 [place] # (Auto) 0.50 K/uL (0.11-0.59) 11/18/22 22:10 Eos # (Auto) 0.07 K/uL (0-0.50) 11/18/22 22:10 Baso # (Auto) 0.05 K/uL (0-0.2) 11/18/22 22:10 Immature Gran # (Auto) 0.03 K/uL (0.01-0.20) 11/18/22 22:10 POC Sodium 139 mmol/L (135-144) 11/18/22 22:16 Sodium 138 mmol/L (136-145) 11/18/22 22:10 POC Potassium 3.5 mmol/L (3.3-5.0) 11/18/22 22:16 Potassium 3.6 mmol/L (3.5-5.1) 11/18/22 22:10 POC Chloride 97 mmol/L (101-112) L 11/18/22 22:16 Chloride 99 mmol/L (98-107) 11/18/22 22:10 Carbon Dioxide 28 mmol/L (21-32) 11/18/22 22:10 POC Total CO2 27 mmol/L (24-31) 11/18/22 22:16 Anion Gap 11 (3-11) 11/18/22 22:10 POC Anion Gap 20.0 mmol/L (16-25) 11/18/22 22:16 POC BUN 15 mg/dl (7-18) 11/18/22 22:16 BUN 15 mg/dl (6-23) 11/18/22 22:10 Creatinine 0.92 mg/dl (0.6-1.4) 11/18/22 22:10 POC Creatinine 1.1 mg/dl (0.6-1.3) 11/18/22 22:16 Est Cr Clr Drug Dosing 94.1 ml/min 11/18/22 22:10 Est GFR ( Amer) 109.7 ml/min 11/18/22 22:10 Est GFR (Non-Af Amer) 94.6 ml/min 11/18/22 22:10 BUN/Creatinine Ratio 16.3 (10-20) 11/18/22 22:10 Glucose 177 mg/dl (70-99(Fasting)) H 11/18/22 22:10 POC Glucose (other) 179 mg/dl (70-99) H 11/18/22 22:16 Calcium 9.0 mg/dl (8.6-10.3) 11/18/22 22:10 POC Ioniz Calcium Marleni 1.11 mmol/l (1.12-1.32) L 11/18/22 22:16 Magnesium 2.1 mg/dl (1.7-2.4) 11/18/22 22:10 Total Bilirubin 0.6 mg/dl (0.2-1.0) 11/18/22 22:10 AST 23 U/L (13-39) 11/18/22 22:10 ALT 29 U/L (7-52) 11/18/22 22:10 Alkaline Phosphatase 63 U/L (34-104) 11/18/22 22:10 Ammonia 30.0 umol/L (18-72) 11/19/22 00:11 Total Creatine Kinase 76 U/L (30-223) 11/18/22 22:10 Troponin I High Sens 3.7 pg/ml (0-20) 11/18/22 22:10 Total Protein 7.0 gm/dl (6.0-8.3) 11/18/22 22:10 Albumin 4.2 gm/dl (3.4-5.0) 11/18/22 22:10 Globulin 2.8 gm/dl (2.5-4.0) 11/18/22 22:10 Albumin/Globulin Ratio 1.5 (0.9-2) 11/18/22 22:10 Urine Color Yellow 11/19/22 01:15 Urine Appearance Clear (Clear) 11/19/22 01:15 Urine pH 5.5 (4.5-7.5) 11/19/22 01:15 Ur Specific [place] > 1.045 (1.000-1.030) H 11/19/22 01:15 Urine Protein Negative (Negative) 11/19/22 01:15 Urine Glucose (UA) 3+ (Negative) H 11/19/22 01:15 Urine Ketones 2+ (Negative) H 11/19/22 01:15 Urine Blood Negative (Negative) 11/19/22 01:15 Urine Nitrite Negative (Negative) 11/19/22 01:15 Urine Bilirubin Negative (Negative) 11/19/22 01:15 Urine Urobilinogen Negative (Negative) 11/19/22 01:15 Ur Leukocyte Esterase Negative (Negative) 11/19/22 01:15 Urine Opiates Screen Neg (Neg) 11/19/22 01:15 Ur Methadone, Qual Neg (Neg) 11/19/22 01:15 Urine Barbiturates Neg (Neg) 11/19/22 01:15 Ur Phencyclidine (PCP) Neg (Neg) 11/19/22 01:15 U Amphetamin/Meth Scrn Neg (Neg) 11/19/22 01:15 MDMA (Ecstasy) Screen Neg (Neg) 11/19/22 01:15 U Benzodiazepines Scrn Neg (Neg) 11/19/22 01:15 Ur Cocaine Metabolite Neg (Neg) 11/19/22 01:15 U Marijuana (THC) Screen Neg (Neg) 11/19/22 01:15 Ethyl Alcohol mg/dL 155.8 mg/dl (<10.0) H 11/18/22 22:10 SARS-CoV-2 (PCR) NEGATIVE (Negative) 11/18/22 22:38 Impressions Abdomen/Pelvis CT 11/18/22 22:04 Exam(s): CT ABDOMEN + PELVIS With Contrast IV Amt: 86 ML OPTIRAY 350 EXAM: CT Abdomen and Pelvis With Intravenous Contrast CLINICAL HISTORY: Reason for exam: Trauma. TECHNIQUE: Axial computed tomography images of the abdomen and pelvis with intravenous contrast. Automated exposure control was utilized for the study. A dose lowering technique was utilized adhering to the principles of ALARA. CONTRAST: Patient received 86 ML OPTIRAY 350 of IV contrast COMPARISON: 12/19/2017. FINDINGS: Lung bases: Minimal posterior dependent atelectasis. ABDOMEN: Liver: Unremarkable. No mass. Gallbladder and bile ducts: Unremarkable. No calcified stones. No ductal dilation. Pancreas: Unremarkable. No mass. No ductal dilation. Spleen: Unremarkable. No splenomegaly. Adrenals: Unremarkable. No mass. Kidneys and ureters: Unremarkable. No solid mass. No hydronephrosis. Stomach and bowel: Increased fecal debris within the colon consistent with mild constipation. No obstruction. No mucosal thickening. PELVIS: Appendix: Nonvisualized appendix with no inflammation to suggest appendicitis. Bladder: Slightly over distended urinary bladder. Reproductive: Unremarkable as visualized. ABDOMEN and PELVIS: Intraperitoneal space: Unremarkable. No free air. No significant fluid collection. Bones/joints: Multilevel degenerative disease throughout the lumbar spine, more severe from L4-S1. No substantial scoliosis. Normal lordosis. Normal alignment with no acute fracture. Soft tissues: Unremarkable. Vasculature: Unremarkable. No abdominal aortic aneurysm. Lymph nodes: Unremarkable. No enlarged lymph nodes. IMPRESSION: No evidence of visceral or intra-abdominal injury. Electronically signed by: Tameka Ren MD 11/18/22 23:[address] 11/18/22 22:04 Exam(s): CT C SPINE EXAM: CT Cervical Spine Without Intravenous Contrast CLINICAL HISTORY: Reason for exam: Trauma. TECHNIQUE: Axial computed tomography images of the cervical spine without intravenous contrast. Automated exposure control was utilized for the study. A dose lowering technique was utilized adhering to the principles of ALARA. COMPARISON: 12/11/2017. FINDINGS: Vertebrae: Degenerative arthrosis at anterior C1-C2 articulation, otherwise normal odontoid process. Mild spondylosis/degenerative disease from C5-C7. No central canal stenosis. No acute fracture. Normal cervical lordosis. Discs/spinal canal/neural foramina: Multilevel bilateral apophyseal hypertrophy, right more than left and contributing to variable degrees of neuroforaminal encroachment. Soft tissues: Unremarkable. IMPRESSION: Nonspecific degenerative disease as described with no acute fracture or subluxation. Electronically signed by: Tameka Ren MD 11/18/22 23:[address] 11/18/22 22:04 Exam(s): CT CHEST With Contrast IV Amt: 86 ML OPTIRAY 350 EXAM: CT Chest With Intravenous Contrast CLINICAL HISTORY: Reason for exam: Trauma. TECHNIQUE: Axial computed tomography images of the chest with intravenous contrast. Automated exposure control was utilized for the study. A dose lowering technique was utilized adhering to the principles of ALARA. CONTRAST: Patient received 86 ML OPTIRAY 350 of IV contrast COMPARISON: 12/11/2017. FINDINGS: Lungs: Minimal posterior dependent atelectasis otherwise normal lung parenchyma. Pleural space: Unremarkable. No pneumothorax. No significant effusion. Heart: Unremarkable. No cardiomegaly. No significant pericardial effusion. No significant coronary artery calcifications. Bones/joints: Unremarkable. No acute fracture. No dislocation. Soft tissues: Unremarkable. Vasculature: Unremarkable. No thoracic aortic aneurysm. Lymph nodes: Unremarkable. No enlarged lymph nodes. IMPRESSION: 1. Minimal posterior dependent atelectasis otherwise no acute cardiopulmonary disease. 2. No pleural effusion or pneumothorax.. Electronically signed by: Tameka Ren MD 11/18/22 23:[address] 11/18/22 22:04 Exam(s): CT HEAD Without Contrast EXAM: CT Head Without Intravenous Contrast CLINICAL HISTORY: Reason for exam: Trauma. TECHNIQUE: Axial computed tomography images of the head/brain without intravenous contrast. Automated exposure control was utilized for the study. A dose lowering technique was utilized adhering to the principles of ALARA. COMPARISON: None. FINDINGS: Brain: Unremarkable. No hemorrhage. No significant white matter disease. No edema. Ventricles: Unremarkable. No ventriculomegaly. Bones/joints: Unremarkable. No acute fracture. Soft tissues: Unremarkable. Sinuses: Unremarkable as visualized. No acute sinusitis. Mastoid air cells: Unremarkable as visualized. No mastoid effusion. IMPRESSION: No acute intracranial process. Electronically signed by: Tameka Ren MD 11/18/22 23:23 PM Diagnostic Findings EKG as per my interpretation : Rate 75, NSR, normal axis, no ischemia
[2022-11-19] MEDS ORDERED: LACTATED RINGER'S 1,000 ML IV ONE (02:31)
[2022-11-19] MEDS ORDERED: LORazepam 2 MG/1 ML VIAL IV PRN ×4 (02:31→03:22)
[2022-11-19] MEDS ORDERED: DEXTROSE 50% 50 ML SYRINGE IV PRN (03:22)
[2022-11-19] MEDS ORDERED: CARBOHYDRATES FOR HYPOGLYCEMIA PO PRN (03:22)
[2022-11-19] MEDS ORDERED: GLUCOSE 10 TAB/TUBE PO PRN (03:22)
[2022-11-19] MEDS ORDERED: PROMETHAZINE HCL 6.25 MG in SODIUM CHLORIDE 0.9% 50 ML IV PRN (03:22)
[2022-11-19] MEDS ORDERED: GLUCOSE 40% GEL 15 GM TUBE PO PRN (03:22)
[2022-11-19] MEDS ORDERED: GLUCAGON FOR INJ 1 MG VIAL SQ PRN (03:22)
[2022-11-19] MEDS ORDERED: Ativan IV Alcohol Withdrawal--Active Protocol IV PRN (03:22)
[2022-11-19] MEDS: INSULIN ASPART PER UNIT CHARGE SC SCH ×5 (04:40→20:35)
[2022-11-19] MEDS ORDERED: GABAPENTIN 1200MG ALCOHOL WITHDRAWAL LOAD PO STA (04:53)
[2022-11-19] MEDS ORDERED: GABAPENTIN 600 MG TAB PO ONE (05:00)
[2022-11-19] MEDS ORDERED: GADOBUTROL 65ML VIAL IV ONE (05:16)
[2022-11-19] MEDS: PANTOprazole 40 MG TAB PO SCH (05:54)
[2022-11-19 06:50] LABS: Basophils # (auto) 0.04 K/uL (0-0.2); Basophils % (auto) 0.7 %; Eosinophils # (auto) 0.06 K/uL (0-0.50); Hematocrit (blood only) 38.6 % (42.0-52.0); Hemoglobin 13.7 g/dl (14.0-18.0); Immature Granulocytes # (auto) 0.02 K/uL (0.01-0.20); Immature Granulocytes % (auto) 0.3 %; Lymphocytes # (auto) 1.27 K/uL (1.2-3.4); Mean Corpuscular Hemoglobin 31.4 pg (25.0-34.0); Mean Corpuscular Hgb Conc 35.5 g/dL (32.0-36.0); Mean Corpuscular Volume 88.3 fL (80.0-100.0); Monocytes # (auto) 0.33 K/uL (0.11-0.59); Monocytes % (auto) 5.7 %; Neutrophils # (auto) 4.04 K/uL (1.40-6.50); Neutrophils % (auto) 70.3 %; Platelet Count 137 K/uL (130-400); RDW Coefficient of Variation 11.8 % (11.5-14.5); RDW Standard Deviation 37.9 fL (36.4-46.3); Red Blood Count 4.37 M/uL (4.70-6.10); White Blood Count 5.76 K/ul (4.8-10.8)
[2022-11-19 07:00] LABS: BUN Creatinine Ratio 18.3 (10-20); Calcium 8.3 mg/dl (8.6-10.3); Creatinine Clr Calc Pharmacy 121.9 ml/min; Est GFR (African American) 124.2 ml/min; Est GFR (Non-African American) 107.1 ml/min; Potassium 3.9 mmol/L (3.5-5.1)
--- NOTE | 2022-11-19 07:14 | XRay Report ---
XR chest 1V portable HISTORY: seizure, ETOH, fall, AMS COMPARISON: Chest CT 11/18/2022. FINDINGS: The lungs are clear. Cardiac silhouette is normal in size. No pleural effusions. No pneumot horax. IMPRESSION: No acute process. ACT 112: Negative or not required by law. Electronically signed by: Dinesh Bourne M.D. 11/19/2022 7:12 AM
[2022-11-19 08:03] LABS: Estimated Average Glucose 243 mg/dl; Hemoglobin A1C 10.1 % (4.5-5.6)
--- NOTE | 2022-11-19 08:19 | Magnetic Resonance Report ---
Brain MRI WITH AND WITHOUT CONTRAST HISTORY: Seizure. TECHNIQUE: Multiplanar multisequence MRI of the brain was performed both before and after the intrave nous administration of contrast. COMPARISON STUDY: None. FINDINGS: There are no areas of restricted diffusion to suggest acute infarction. The midline structu res are intact. The paranasal sinuses are clear. The mastoid air cells are clear. The ventricles and sulci are within normal limits for age. There is no mass, hematoma, midline shift. The major vascular flow-voids at the skull base are well maintained. Postcontrast sequences show no areas of abnormal e nhancement. Incidental note is made of a small developmental venous anomaly within the right occipita l lobe. This is considered to be a normal variant. IMPRESSION: No acute intracranial abnormality. ACT 112: Negative or not required by law. Electronically signed by: Dinesh Bourne M.D. 11/19/2022 8:17 AM
[2022-11-19] MEDS: ENOXAPARIN INJ 40 MG/0.4 ML SYR SQ SCH (08:58)
[2022-11-19] MEDS: busPIRone 15 MG TAB PO SCH ×3 (08:59→20:35)
[2022-11-19] MEDS: CITALOPRAM 20 MG TAB PO SCH (08:59)
[2022-11-19] MEDS: FAMOTIDINE 20 MG TAB PO SCH (09:00)
[2022-11-19] MEDS ORDERED: LANTUS PER UNIT CHARGE SQ SCH (09:00)
[2022-11-19] MEDS ORDERED: CITALOPRAM 10 MG PO SCH (09:00)
[2022-11-19] MEDS: lisinopril 5 MG TAB PO SCH (09:00)
[2022-11-19] MEDS: LANTUS PER UNIT CHARGE SQ SCH (09:14)
--- NOTE | 2022-11-19 10:08 | Psychiatric Consultation ---
Date of Consultation November 19, 2022 Impression / Recommendations Impression 51 y/o man with unclear prior psychiatric history who has been a chronic alcohol drinker qit a recent increase in alcohol use. He lost his 7 months ago, became engaged within 3 months, and now that engagement may be over since his fiancee found he was "trying to talk to other women". He made a statement about going to his camp and not coming back that his daughter interpreted as suicidal but which he says means he intends to move there permanently, in part to escape criticism of his drinking. He does not present as suicidal but may be depressed. I am not concerned that he presents a risk of harm to himself if he were to be transferred to the medical floor. (1) Alcohol use disorder, severe, dependence: (2) Alcohol intoxication with blood alcohol level 0.08-0.29: Plan * continue citalopram 30 mg PO daily * continue buspirone 15 mg PO TID * does not currently require 1:1 for suicide or other risks Psych History Identifying Data NAIF CARRASCO is a 51-year-old M with a history of alcohol use, admit on 11/19/2022 for alcohol intoxication and seizure. Consult is by the hospitalist service for "poss suicidality". Chief Complaint "Why are you talking to me?". History of Present Illness As part of my detailed review of the record, I read this note by the ED physician: "This 51-year-old alcoholic presents to the ER for seizure with frequent falls. Patient is intoxicated and difficult to obtain history. EMS states he is a diabetic and blood sugar was 200. He is apparently falling much more often. He drinks daily. No known alcohol withdrawal seizures. No seizure disorder. Patient is yelling at me and not making much sense. He is moving all extremities." this note by the ED psychiatric case mgr: "Met with patients daughter who stated she would like Naif to be evaluated by mental health while he is hospitalized. Daughter stated Naif has a mental health history and has been admitted for inpatient treatment years ago. Daughter stated Naif is "never really sober so it's hard to tease out." Daughter stated this past week, Naif has been stating he is "going to go out to camp and not return." Daughter was asked if Naif made any specific threats of suicide and she stated he has not. Daughter stated "this afternoon he said he was going to camp and never coming back and you know what that means." Advised will not her concern but there are no specific threats or act of furtherance in which to petition for involuntary commitment at this time. Naif is being medically admitted for ETOH/Seizures." and this note by the psychiatric liaison RN: "Patient seen for initial consult with Cecelia RN, alert and oriented x 4 - groggy at this time, endorses passive SI with thoughts of not wanting to wake up on "some days" PHQ9 score of 12+1 - denies HI, denies hallucinations/delusions, patient reports a long history of drinking alcohol 2-3 beers a day on a "light day" to 1.5 bottles of whiskey on a "heavy day", he denies any psychiatric pro viders and is prescribed buspar 15mg TID by his PCP, he has also never been to rehab for alcohol before and does not recall any statements to his mom about "going camping and never coming back" or his seizure, recent stressors are the of his in March of 2022 but did not discuss etiology of her at this time, currently lives with his daughter November which he gave verbal permission for RAMONA, works [facility] [employer] and in regards to inpatient rehab states "I gotta go to work", once patient is more alert will explore possible outpatient options, patient does have access to guns at home, denies other questions at this time. Will continue to round. Original Note: Patient scoring low suicide risk, will update hospitalist, patient agrees to alert staff if he does have thoughts of suicide or self-harm." Pt tells me he's never received inpatient or outpatient psychiatric treatment (despite daughter's report of past psychiatric admission) and says he is not using any psychiatric medications, though his current medications include citalopram 30 mg daily and buspirone 15 mg TID. Pt says he started drinking heavily on of last week and has gone through about 750 mL of whiskey per day. He reports he drinks heavily and often, but that he's been drinking more than usual over the past week. He denies any history of withdrawal symptoms, noting that he's "never really stopped". Pt denies any suicidal thoughts. He says he plans to move to his camp permanently, in large part because "there's nobody there to tell you not to drink". Pt reports primary stressors include that his of 24 years in Mar 2022 after 7 years of multiple myeloma. The woman to whom he's been engaged since Jun 2022 and he got in an argument on because she caught him "talking to an other woman" (who turned out to be the fiancee herself). He's been living with his daughter since the of his but really wants to move to his camp because his daughter "won't mind her own business". Past Psychiatric History Previous Psych History: denies, but andrea. reports long-ago admission and is on citalopram and buspirone Outpatient Services: denies, but is on citalopram and buspirone Previous Psych Admissions: denies, but [facility]. reports long-ago admission Do You Have Access To A Gun?: No History of Previous Suicide Attempt: No Allergies Allergy/AdvReac Type Severity Reaction Status Date / Time No Known Allergies Allergy Unverified 11/12/22 14:53 Home Medications Medication Instructions Recorded Confirmed Type buspirone 15 mg tablet 15 mg PO TID 11/19/22 11/19/22 History citalopram 10 mg tablet 10 mg PO DAILY 11/19/22 11/19/22 History citalopram 20 mg tablet 20 mg PO DAILY 11/19/22 11/19/22 History dulaglutide 4.5 mg/0.5 mL 4.5 mg subcut WK 11/19/22 11/19/22 History subcutaneous pen injector (Trulicity) empagliflozin 25 mg tablet 25 mg PO DAILY 11/19/22 11/19/22 History (Jardiance) famotidine 20 mg tablet 20 mg PO DAILY 11/19/22 11/19/22 History insulin glargine 100 unit/mL 35 unit subcut QDD 11/19/22 11/19/22 History subcutaneous solution (Lantus U-100 Insulin) lisinopril 5 mg tablet 5 mg PO DAILY 11/19/22 11/19/22 History meloxicam 7.5 mg tablet 7.5 - 15 mg PO DAILY 11/19/22 11/19/22 History omeprazole 20 mg tablet,delayed 20 mg PO DAILYBB 03/29/23 03/29/23 History release Patient History Social History Smoking Status: Never smoker Hx Alcohol Use: Yes Alcohol type: hard liquor Hx Substance Use: No Preferred Language: Cypriot Communication Ability: Effective Herpetologist Required: No Beliefs That Will Affect Care: None Current Living Situation: Family Current Living Situation Comment: lives with daughter Other Information That Helps Us Care for You: No Feels Safe at Home: Yes Safety Concerns: Feels Safe At This Time Assistive Devices: None Physical Exam Psychiatric: Orientation: oriented to person, oriented to place and + guarded; + not oriented to time (yesterday's day and date) drowsy Apperance: appropriately dressed and + disheveled Eye Contact: + fair eye contact Motor Behavior: no abnormal motor movements Speech: normal rate/rhythm/volume of speech Affect: + constricted affect Mood: + dysphoric mood Thought Process: + concrete thought process Thought Content: reality based without delusions Suicidal Thoughts: denies suicidal thoughts, denies suicidal plan and denies suicidal intent Homicidal Thoughts: denies homicidal thoughts Hallucinations: no auditory hallucinations and no visual hallucinations Cognition: remote memory grossly intact, attention grossly intact and language grossly intact; + recent memory not intact (palimpsest memories of past 2-3 days) Estimated Intelligence: average estimated intelligence Insight: + poor insight Judgment: + poor judgement Vital Signs (Past 24 Hours): Last Vital Signs Temp 36.5 C 11/18/22 21:58 Pulse 65 11/19/22 08:36 Resp 16 11/19/22 08:36 BP 115/69 11/19/22 08:36 Pulse Ox 96 11/19/22 08:36 O2 Del Method Room Air 11/19/22 08:36 Review of Systems Psychiatric: + substance abuse; no depression, no hopelessness, no anhedonia, no change in appetite, no change in sex drive, no suicidal ideation, no anxiety, no confusion, no paranoia and no hallucinations Results & Data (PSY) Medications Administered Buspirone HCl (Buspirone 15 Mg Tab) 15 mg PO TID [facility] Stop: 12/19/22 08:59 Last Admin: 11/19/22 08:59 Dose: 15 mg Documented By: AB Citalopram Hydrobromide (Citalopram 20 Mg Tab) 30 mg PO DAILY [facility] Stop: 12/19/22 08:59 Last Admin: 11/19/22 08:59 Dose: 30 mg Documented By: Enoxaparin Sodium (Enoxaparin Inj 40 Mg/0.4 Ml Syr) 40 mg SQ QAM [facility] Stop: 12/19/22 08:59 Last Admin: 11/19/22 08:58 Dose: 40 mg Documented By: Famotidine (Famotidine 20 Mg Tab) 20 mg PO DAILY [facility] Stop: 12/19/22 08:59 Last Admin: 11/19/22 09:00 Dose: 20 mg Documented By: Lactated Ringer's (Lr) 1,000 mls @ 100 mls/hr IV .Q10H ONE Stop: 11/19/22 12:30 Last Admin: 11/19/22 04:25 Dose: 100 mls/hr Documented By: MIKAYLA Insulin Aspart (Insulin Aspart Per Unit Charge) 0 units SC ACHS [facility] Stop: 12/19/22 03:21 Last Admin: 11/19/22 09:14 Dose: Not Given Documented By: Co-signed By: MATT Admin: 11/19/22 04:40 Dose: Not Given Documented By: MIKAYLA Co-signed By: MAILEJ Insulin Glargine (Lantus Per Unit Charge) 10 units SQ DAILY [facility] Stop: 12/19/22 08:59 Last Admin: 11/19/22 09:14 Dose: Not Given Documented By: Lisinopril (Lisinopril 5 Mg Tab) 5 mg PO DAILY [facility] Stop: 12/19/22 08:59 Last Admin: 11/19/22 09:00 Dose: 5 mg Documented By: Pantoprazole Sodium (Pantoprazole 40 Mg Tab) 40 mg PO DAILYBB [facility] Stop: 12/19/22 06:29 Last Admin: 11/19/22 05:54 Dose: 40 mg Documented By: MIKAYLA Coding Level of Care Code 54315 IN/OBS CONSULT LVL 4,60M Diagnoses Alcohol use disorder, severe, dependence F10.20 Alcohol intoxication with blood alcohol level 0.08-0.29 F10.929 Time Spent (min) 67
[2022-11-19] MEDS: GABAPENTIN 600 MG TAB PO SCH ×2 (12:32→17:22)
--- NOTE | 2022-11-19 13:19 | Electroencephalogram ---
EEG Procedure Note Date of Service November 19, 2022 Start / End Times Start Time: 11:08 End Time: 11:28 Referring Physician Oli Echols MD History ETOHism with seizure Home Medication List Medication Instructions Recorded Confirmed Type buspirone 15 mg tablet 15 mg PO TID 11/19/22 11/19/22 History citalopram 10 mg tablet 10 mg PO DAILY 11/19/22 11/19/22 History citalopram 20 mg tablet 20 mg PO DAILY 11/19/22 11/19/22 History dulaglutide 4.5 mg/0.5 mL 4.5 mg subcut WK 11/19/22 11/19/22 History subcutaneous pen injector (Trulicity) empagliflozin 25 mg tablet 25 mg PO DAILY 11/19/22 11/19/22 History (Jardiance) famotidine 20 mg tablet 20 mg PO DAILY 11/19/22 11/19/22 History insulin glargine 100 unit/mL 35 unit subcut QDD 11/19/22 11/19/22 History subcutaneous solution (Lantus U-100 Insulin) lisinopril 5 mg tablet 5 mg PO DAILY 11/19/22 11/19/22 History meloxicam 7.5 mg tablet 7.5 - 15 mg PO DAILY 11/19/22 11/19/22 History omeprazole 20 mg tablet,delayed 20 mg PO DAILYBB 11/19/22 11/19/22 History release Inpatient Medication List Buspirone HCl (Buspirone 15 Mg Tab) 15 mg PO TID [facility] Stop: 12/19/22 08:59 Last Admin: 11/19/22 08:59 Dose: 15 mg Documented By: AB Citalopram Hydrobromide (Citalopram 20 Mg Tab) 30 mg PO DAILY [facility] Stop: 12/19/22 08:59 Last Admin: 11/19/22 08:59 Dose: 30 mg Documented By: AB Enoxaparin Sodium (Enoxaparin Inj 40 Mg/0.4 Ml Syr) 40 mg SQ QAM [facility] Stop: 12/19/22 08:59 Last Admin: 11/19/22 08:58 Dose: 40 mg Documented By: AB Famotidine (Famotidine 20 Mg Tab) 20 mg PO DAILY [facility] Stop: 12/19/22 08:59 Last Admin: 11/19/22 09:00 Dose: 20 mg Documented By: Gabapentin (Gabapentin 600 Mg Tab) 600 mg PO Q6H [facility] Stop: 11/19/22 18:01 Last Admin: 11/19/22 12:32 Dose: 600 mg Documented By: LEXA Insulin Aspart (Insulin Aspart Per Unit Charge) 0 units SC ACHS [facility] Stop: 12/19/22 03:21 Last Admin: 11/19/22 12:32 Dose: Not Given Documented By: Admin: 11/19/22 09:14 Dose: Not Given Documented By: Co-signed By: MATT Admin: 11/19/22 04:40 Dose: Not Given Documented By: MIKAYLA Co-signed By: KYA Insulin Glargine (Lantus Per Unit Charge) 10 units SQ DAILY [facility] Stop: 12/19/22 08:59 Last Admin: 11/19/22 09:14 Dose: Not Given Documented By: Lisinopril (Lisinopril 5 Mg Tab) 5 mg PO DAILY [facility] Stop: 12/19/22 08:59 Last Admin: 11/19/22 09:00 Dose: 5 mg Documented By: Pantoprazole Sodium (Pantoprazole 40 Mg Tab) 40 mg PO DAILYBB [facility] Stop: 12/19/22 06:29 Last Admin: 11/19/22 05:54 Dose: 40 mg Documented By: MIKAYLA Discontinued Medications Gabapentin (Gabapentin 600 Mg Tab) 1,200 mg PO NOW ONE Stop: 11/19/22 05:01 Last Admin: 11/19/22 05:54 Dose: 1,200 mg Documented By: MIKAYLA Gadobutrol (Gadobutrol 65ml Vial) 8 ml IV ONCE ONE Stop: 11/19/22 05:17 Last Admin: 11/19/22 05:16 Dose: 8 ml Documented By: LISE Sodium Chloride (Nss 1000ml) 1,000 mls @ 999 mls/hr IV .Q1H1M [facility] Stop: 11/18/22 23:15 Last Infusion: 11/18/22 23:24 Dose: 0 mls/hr Documented By: Admin: 11/18/22 22:20 Dose: 999 mls/hr Documented By: MIKKI Thiamine HCl 100 mg/ Folic (Acid 1 mg/ Sodium Chloride) 1,001.2 mls @ 1,011.2 mls/hr IV .Q1H LEANNA; Protocol Stop: 12/18/22 22:14 Last Admin: 11/19/22 01:02 Dose: Not Given Documented By: Infusion: 11/18/22 23:57 Dose: 0 mls/hr Documented By: Admin: 11/18/22 23:00 Dose: 1,011.2 mls/hr Documented By: MIKAYLA Lactated Ringer's (Lr) 1,000 mls @ 100 mls/hr IV .Q10H ONE Stop: 11/19/22 12:30 Last Infusion: 11/19/22 12:27 Dose: 0 mls/hr Documented By: Admin: 11/19/22 04:25 Dose: 100 mls/hr Documented By: MIKAYLA Ioversol (Optiray 350 100ml) 100 ml IV ONCE ONE Stop: 11/18/22 22:53 Last Admin: 11/18/22 22:53 Dose: 86 ml Documented By: AIDE Multivitamins/Minerals (Cerovite Adv Formula Tab) 1 tab PO ONE STA Stop: 11/18/22 22:04 Last Admin: 11/19/22 03:38 Dose: Not Given Documented By: MIKAYLA Description This is a 21 electrode EEG with a single channel dedicated to limited EKG. The electrodes were placed in accordance with the International 10-20 system. Interpretation There is not enough wakeful recording to assess. Most of the study, the patient has stayed in sleep with sleep spindles, vertex sharp waves and occasional K complexes bilaterally and symmetrically. During short arousals, background shows low amplitude with mild diffuse slowing, composed of low amplitude, 2 to 3 Hz delta, intermixed with 5 to 6 Hz low amplitude generalized theta waveforms. High-frequency, low amplitude generalized waveforms are considered to be benzodiazepine induced beta rhythm. Photic stimulations poorly induced posterior driving responses bilaterally. Hyperventilation is not attempted. There are no electrographic seizures, epileptogenic discharges or asymmetries. Impression: This EEG, recorded mostly in sleep and in short wakefulness, is abnormal due to diffuse mild slowing, consistent with bihemispheric dysfunction, as seen in encephalopathies, sedative medication usage, or postictal state. There is no electrographic seizure or epileptogenic discharge.
--- NOTE | 2022-11-19 13:29 | Electrocardiogram Report ---
Test Reason : Blood Pressure : / mmHG Vent. Rate : 075 BPM Atrial Rate : 075 BPM P-R Int : 148 ms QRS Dur : 088 ms QT Int : 408 ms P-R-T Axes : 057 054 065 degrees QTc Int : 455 ms Normal sinus rhythm Normal ECG No previous ECGs available Confirmed by Andrew Mason ([id number]) on 11/19/2022 1:28:49 PM Referred By: REFERRED SELF Confirmed By:Andrew Mason
--- NOTE | 2022-11-19 14:08 | Neurology Consultation ---
Date of Consultation November 19, 2022 Assessment & Plan (1) Seizure: Impression: The patient had 2 episodes of loss of consciousness with shakiness, which was witnessed by the patient's daughter. The patient has no prior history of seizures including alcohol withdrawal seizures. His serum alcohol level was very high. Alcohol toxicity, alcoholism induced metabolic derangements, or convulsive syncope are potential causes of recent convulsive episodes. EEG and brain MRI are unremarkable. Recommendations/plan: There is no indication for antiepileptic treatment at this time. Based on Department of Transportation rules, the patient should not drive motor vehicles for at least 6 months, or until getting clearance from neurology clinic. The patient is neurologically stable to discharge. Cessation of alcohol abuse is strongly recommended. I will contact with [facility] neurology to set up a follow-up appointment. Follow-up at neurology clinic in 1 to 2 months. (2) Alcohol intoxication with blood alcohol level 0.08-0.29: (3) Alcohol use disorder, severe, dependence: (4) Fall: Plan As seen above. Thank you for the consultation. History of Present Illness Reason for Consultation: Seizure Requesting Physician: Wild Espinoza MD Attending Physician: Wild Espinoza MD History of Present Illness The patient is a 51-year-old male, with history of chronic alcoholism, diabetes mellitus, and hypertension, who was slumped over yesterday with 2 episodes so shaking activity, and was brought to emergency department by EMS. There was no tongue biting or urinary incontinence. The patient denies having any seizure or seizure-like activities in the past. Initial imaging studies including head CT were unremarkable and did not show acute intracranial pathology. The patient was admitted to hospital with alcohol withdrawal precautions. The patient has stayed seizure-free. EEG did not show epileptogenic activity and brain MRI was unremarkable. He was very restless and agitated initially but since this morning, he has been doing well and mental status was improved back to his baseline. He reports that he has been drinking as usual without any recent withdrawal. He understood consequences of alcohol abuse, including seizures and syncopal episodes. He also understood driving restrictions after having seizure or loss of consciousness episode. I have reviewed the patient's chart including imaging studies and EEG report. I have discussed the case with the patient and answered his questions in detail. Allergies Allergy/AdvReac Type Severity Reaction Status Date / Time No Known Allergies Allergy Unverified 11/12/22 14:53 Home Medications Medication Instructions Recorded Confirmed Type buspirone 15 mg tablet 15 mg PO TID 11/19/22 11/19/22 History citalopram 10 mg tablet 10 mg PO DAILY 11/19/22 11/19/22 History citalopram 20 mg tablet 20 mg PO DAILY 11/19/22 11/19/22 History dulaglutide 4.5 mg/0.5 mL 4.5 mg subcut WK 11/19/22 11/19/22 History subcutaneous pen injector (Trulicity) empagliflozin 25 mg tablet 25 mg PO DAILY 11/19/22 11/19/22 History (Jardiance) famotidine 20 mg tablet 20 mg PO DAILY 11/19/22 11/19/22 History insulin glargine 100 unit/mL 35 unit subcut QDD 11/19/22 11/19/22 History subcutaneous solution (Lantus U-100 Insulin) lisinopril 5 mg tablet 5 mg PO DAILY 11/19/22 11/19/22 History meloxicam 7.5 mg tablet 7.5 - 15 mg PO DAILY 11/19/22 11/19/22 History omeprazole 20 mg tablet,delayed 20 mg PO DAILYBB 11/19/22 11/19/22 History release Patient History Social History Smoking Status: Never smoker Hx Alcohol Use: Yes Alcohol type: hard liquor Hx Substance Use: No Preferred Language: Stateless Communication Ability: Effective Treasurer Required: No Beliefs That Will Affect Care: None Current Living Situation: Family Current Living Situation Comment: lives with daughter Feels Safe at Home: Yes Assistive Devices: None Review of Systems Review of Systems: All systems reviewed & are unremarkable except as noted in HPI & below Physical Exam Physical Exam: General Examination: Constitutional: Well developed person in no acute distress. HENT: Normal exam with inspection. CV: Hearth rhythm is regular. Neck: Supple, no carotid bruits. Lungs: Non-labored and comfortable breathing. Abdomen: Soft, non-tender, non-distended. Skin: No rash or ecchymosis. Extremities: No edema or cyanosis NEUROLOGICAL EXAMINATION: Mental Status: Alert and oriented to place, person and time. Cranial Nerves: II-XII are intact. No nystagmus. Funduscopy: Normal looking optic discs. Motor: 5/5 in all extremities without asymmetry. Tone: Normal without spasticity or rigidity. Sensory: Intact to all sensory modalities. Coordination: No dysmetria with FTN testing. Speech: Fluent. Comprehension is intact. Gait: slightly wide based, otherwise normal. No ataxia or abnormal walking pattern. Musculoskeletal: Normal muscle bulk, no atrophy. Results & Data Vital Signs (Past 12 Hours) Vital Signs Pulse Pulse Resp BP BP Pulse Ox Pulse Ox 11/19/22 08:36 65 16 115/69 96 11/19/22 06:06 68 17 106/64 95 11/19/22 04:27 96 11/19/22 04:26 83 16 109/61 95 11/19/22 03:00 77 7 L 96 11/19/22 03:00 101/56 L 11/19/22 02:30 75 12 96 11/19/22 02:30 104/58 L 11/19/22 02:17 94 H O2 Del Method O2 Del Method 11/19/22 08:36 Room Air 11/19/22 06:06 Room Air 11/19/22 04:27 Room Air 11/19/22 04:26 Room Air 11/19/22 03:00 11/19/22 03:00 11/19/22 02:30 11/19/22 02:30 11/19/22 02:17 Laboratory Results Laboratory Results - last 24 hr 11/18/22 11/18/22 11/18/22 22:10 22:10 22:10 WBC 8.63 RBC 4.87 Hgb 15.1 POC Hgb Hct 42.6 POC Hct MCV 87.5 MCH 31.0 MCHC 35.4 RDW Std Deviation 37.5 RDW Coeff of Janice 11.7 Plt Count 148 MPV 12.2 Immature Gran % (Auto) 0.3 Neut % (Auto) 76.3 Lymph % (Auto) 16.2 [place] % (Auto) 5.8 Eos % (Auto) 0.8 Baso % (Auto) 0.6 Neut # (Auto) 6.58 H Lymph # (Auto) 1.40 [place] # (Auto) 0.50 Eos # (Auto) 0.07 Baso # (Auto) 0.05 Immature Gran # (Auto) 0.03 POC Sodium Sodium 138 POC Potassium Potassium 3.6 POC Chloride Chloride 99 Carbon Dioxide 28 POC Total CO2 Anion Gap 11 POC Anion Gap POC BUN BUN 15 Creatinine 0.92 POC Creatinine Est Cr Clr Drug Dosing 94.1 Est GFR ( Amer) 109.7 Est GFR (Non-Af Amer) 94.6 BUN/Creatinine Ratio 16.3 Glucose 177 H POC Glucose POC Glucose (other) Estimat Average Glucose Hemoglobin A1c Calcium 9.0 POC Ioniz Calcium Marleni Magnesium 2.1 Total Bilirubin 0.6 AST 23 ALT 29 Alkaline Phosphatase 63 Ammonia Total Creatine Kinase 76 Troponin I High Sens 3.7 Total Protein 7.0 Albumin 4.2 Globulin 2.8 Albumin/Globulin Ratio 1.5 Urine Color Urine Appearance Urine pH Ur Specific [place] Urine Protein Urine Glucose (UA) Urine Ketones Urine Blood Urine Nitrite Urine Bilirubin Urine Urobilinogen Ur Leukocyte Esterase Urine Opiates Screen Ur Methadone, Qual Urine Barbiturates Ur Phencyclidine (PCP) U Amphetamin/Meth Scrn MDMA (Ecstasy) Screen U Benzodiazepines Scrn Ur Cocaine Metabolite U Marijuana (THC) Screen Ethyl Alcohol mg/dL 155.8 H SARS-CoV-2 (PCR) 11/18/22 11/18/22 11/18/22 22:10 22:16 22:38 WBC RBC Hgb POC Hgb 15.0 Hct POC Hct 44 MCV MCH MCHC RDW Std Deviation RDW Coeff of Janice Plt Count MPV Immature Gran % (Auto) Neut % (Auto) Lymph % (Auto) [place] % (Auto) Eos % (Auto) Baso % (Auto) Neut # (Auto) Lymph # (Auto) [place] # (Auto) Eos # (Auto) Baso # (Auto) Immature Gran # (Auto) POC Sodium 139 Sodium POC Potassium 3.5 Potassium POC Chloride 97 L Chloride Carbon Dioxide POC Total CO2 27 Anion Gap POC Anion Gap 20.0 POC BUN 15 BUN Creatinine POC Creatinine 1.1 Est Cr Clr Drug Dosing Est GFR ( Amer) Est GFR (Non-Af Amer) BUN/Creatinine Ratio Glucose POC Glucose POC Glucose (other) 179 H Estimat Average Glucose 243 Hemoglobin A1c 10.1 H Calcium POC Ioniz Calcium Marleni 1.11 L Magnesium Total Bilirubin AST ALT Alkaline Phosphatase Ammonia Total Creatine Kinase Troponin I High Sens Total Protein Albumin Globulin Albumin/Globulin Ratio Urine Color Urine Appearance Urine pH Ur Specific [place] Urine Protein Urine Glucose (UA) Urine Ketones Urine Blood Urine Nitrite Urine Bilirubin Urine Urobilinogen Ur Leukocyte Esterase Urine Opiates Screen Ur Methadone, Qual Urine Barbiturates Ur Phencyclidine (PCP) U Amphetamin/Meth Scrn MDMA (Ecstasy) Screen U Benzodiazepines Scrn Ur Cocaine Metabolite U Marijuana (THC) Screen Ethyl Alcohol mg/dL SARS-CoV-2 (PCR) NEGATIVE 11/19/22 11/19/22 11/19/22 00:11 01:15 01:15 WBC RBC Hgb POC Hgb Hct POC Hct MCV MCH MCHC RDW Std Deviation RDW Coeff of Janice Plt Count MPV Immature Gran % (Auto) Neut % (Auto) Lymph % (Auto) [place] % (Auto) Eos % (Auto) Baso % (Auto) Neut # (Auto) Lymph # (Auto) [place] # (Auto) Eos # (Auto) Baso # (Auto) Immature Gran # (Auto) POC Sodium Sodium POC Potassium Potassium POC Chloride Chloride Carbon Dioxide POC Total CO2 Anion Gap POC Anion Gap POC BUN BUN Creatinine POC Creatinine Est Cr Clr Drug Dosing Est GFR ( Amer) Est GFR (Non-Af Amer) BUN/Creatinine Ratio Glucose POC Glucose POC Glucose (other) Estimat Average Glucose Hemoglobin A1c Calcium POC Ioniz Calcium Marleni Magnesium Total Bilirubin AST ALT Alkaline Phosphatase Ammonia 30.0 Total Creatine Kinase Troponin I High Sens Total Protein Albumin Globulin Albumin/Globulin Ratio Urine Color Yellow Urine Appearance Clear Urine pH 5.5 Ur Specific [place] > 1.045 H Urine Protein Negative Urine Glucose (UA) 3+ H Urine Ketones 2+ H Urine Blood Negative Urine Nitrite Negative Urine Bilirubin Negative Urine Urobilinogen Negative Ur Leukocyte Esterase Negative Urine Opiates Screen Neg Ur Methadone, Qual Neg Urine Barbiturates Neg Ur Phencyclidine (PCP) Neg U Amphetamin/Meth Scrn Neg MDMA (Ecstasy) Screen Neg U Benzodiazepines Scrn Neg Ur Cocaine Metabolite Neg U Marijuana (THC) Screen Neg Ethyl Alcohol mg/dL SARS-CoV-2 (PCR) 11/19/22 11/19/22 11/19/22 04:22 05:44 05:44 WBC 5.76 RBC 4.37 L Hgb 13.7 L POC Hgb Hct 38.6 L POC Hct MCV 88.3 MCH 31.4 MCHC 35.5 RDW Std Deviation 37.9 RDW Coeff of Janice 11.8 Plt Count 137 MPV 12.0 Immature Gran % (Auto) 0.3 Neut % (Auto) 70.3 Lymph % (Auto) 22.0 [place] % (Auto) 5.7 Eos % (Auto) 1.0 Baso % (Auto) 0.7 Neut # (Auto) 4.04 Lymph # (Auto) 1.27 [place] # (Auto) 0.33 Eos # (Auto) 0.06 Baso # (Auto) 0.04 Immature Gran # (Auto) 0.02 POC Sodium Sodium 139 POC Potassium Potassium 3.9 POC Chloride Chloride 105 Carbon Dioxide 27 POC Total CO2 Anion Gap 7 POC Anion Gap POC BUN BUN 13 Creatinine 0.71 POC Creatinine Est Cr Clr Drug Dosing 121.9 Est GFR ( Amer) 124.2 Est GFR (Non-Af Amer) 107.1 BUN/Creatinine Ratio 18.3 Glucose 107 H POC Glucose 117 H POC Glucose (other) Estimat Average Glucose Hemoglobin A1c Calcium 8.3 L POC Ioniz Calcium Marleni Magnesium Total Bilirubin AST ALT Alkaline Phosphatase Ammonia Total Creatine Kinase Troponin I High Sens Total Protein Albumin Globulin Albumin/Globulin Ratio Urine Color Urine Appearance Urine pH Ur Specific [place] Urine Protein Urine Glucose (UA) Urine Ketones Urine Blood Urine Nitrite Urine Bilirubin Urine Urobilinogen Ur Leukocyte Esterase Urine Opiates Screen Ur Methadone, Qual Urine Barbiturates Ur Phencyclidine (PCP) U Amphetamin/Meth Scrn MDMA (Ecstasy) Screen U Benzodiazepines Scrn Ur Cocaine Metabolite U Marijuana (THC) Screen Ethyl Alcohol mg/dL SARS-CoV-2 (PCR) 11/19/22 11/19/22 11/19/22 08:54 08:56 11:45 WBC RBC Hgb POC Hgb Hct POC Hct MCV MCH MCHC RDW Std Deviation RDW Coeff of Janice Plt Count MPV Immature Gran % (Auto) Neut % (Auto) Lymph % (Auto) [place] % (Auto) Eos % (Auto) Baso % (Auto) Neut # (Auto) Lymph # (Auto) [place] # (Auto) Eos # (Auto) Baso # (Auto) Immature Gran # (Auto) POC Sodium Sodium POC Potassium Potassium POC Chloride Chloride Carbon Dioxide POC Total CO2 Anion Gap POC Anion Gap POC BUN BUN Creatinine POC Creatinine Est Cr Clr Drug Dosing Est GFR ( Amer) Est GFR (Non-Af Amer) BUN/Creatinine Ratio Glucose POC Glucose 68 L* 71 74 POC Glucose (other) Estimat Average Glucose Hemoglobin A1c Calcium POC Ioniz Calcium Marleni Magnesium Total Bilirubin AST ALT Alkaline Phosphatase Ammonia Total Creatine Kinase Troponin I High Sens Total Protein Albumin Globulin Albumin/Globulin Ratio Urine Color Urine Appearance Urine pH Ur Specific [place] Urine Protein Urine Glucose (UA) Urine Ketones Urine Blood Urine Nitrite Urine Bilirubin Urine Urobilinogen Ur Leukocyte Esterase Urine Opiates Screen Ur Methadone, Qual Urine Barbiturates Ur Phencyclidine (PCP) U Amphetamin/Meth Scrn MDMA (Ecstasy) Screen U Benzodiazepines Scrn Ur Cocaine Metabolite U Marijuana (THC) Screen Ethyl Alcohol mg/dL SARS-CoV-2 (PCR) Diagnostic Findings Chest X-Ray 11/18/22 22:03 XR chest 1V portable HISTORY: seizure, ETOH, fall, AMS COMPARISON: Chest CT 11/18/2022. FINDINGS: The lungs are clear. Cardiac silhouette is normal in size. No pleural effusions. No pneumothorax. IMPRESSION: No acute process. ACT 112: Negative or not required by law. Electronically signed by: Dinesh Bourne M.D. 11/19/2022 7:12 AM Abdomen/Pelvis CT 11/18/22 22:04 Exam(s): CT ABDOMEN + PELVIS With Contrast IV Amt: 86 ML OPTIRAY 350 EXAM: CT Abdomen and Pelvis With Intravenous Contrast CLINICAL HISTORY: Reason for exam: Trauma. TECHNIQUE: Axial computed tomography images of the abdomen and pelvis with intravenous contrast. Automated exposure control was utilized for the study. A dose lowering technique was utilized adhering to the principles of ALARA. CONTRAST: Patient received 86 ML OPTIRAY 350 of IV contrast COMPARISON: 12/19/2017. FINDINGS: Lung bases: Minimal posterior dependent atelectasis. ABDOMEN: Liver: Unremarkable. No mass. Gallbladder and bile ducts: Unremarkable. No calcified stones. No ductal dilation. Pancreas: Unremarkable. No mass. No ductal dilation. Spleen: Unremarkable. No splenomegaly. Adrenals: Unremarkable. No mass. Kidneys and ureters: Unremarkable. No solid mass. No hydronephrosis. Stomach and bowel: Increased fecal debris within the colon consistent with mild constipation. No obstruction. No mucosal thickening. PELVIS: Appendix: Nonvisualized appendix with no inflammation to suggest appendicitis. Bladder: Slightly over distended urinary bladder. Reproductive: Unremarkable as visualized. ABDOMEN and PELVIS: Intraperitoneal space: Unremarkable. No free air. No significant fluid collection. Bones/joints: Multilevel degenerative disease throughout the lumbar spine, more severe from L4-S1. No substantial scoliosis. Normal lordosis. Normal alignment with no acute fracture. Soft tissues: Unremarkable. Vasculature: Unremarkable. No abdominal aortic aneurysm. Lymph nodes: Unremarkable. No enlarged lymph nodes. IMPRESSION: No evidence of visceral or intra-abdominal injury. Electronically signed by: Tameka Ren MD 11/18/22 23:[address] 11/18/22 22:04 Exam(s): CT C SPINE EXAM: CT Cervical Spine Without Intravenous Contrast CLINICAL HISTORY: Reason for exam: Trauma. TECHNIQUE: Axial computed tomography images of the cervical spine without intravenous contrast. Automated exposure control was utilized for the study. A dose lowering technique was utilized adhering to the principles of ALARA. COMPARISON: 12/11/2017. FINDINGS: Vertebrae: Degenerative arthrosis at anterior C1-C2 articulation, otherwise normal odontoid process. Mild spondylosis/degenerative disease from C5-C7. No central canal stenosis. No acute fracture. Normal cervical lordosis. Discs/spinal canal/neural foramina: Multilevel bilateral apophyseal hypertrophy, right more than left and contributing to variable degrees of neuroforaminal encroachment. Soft tissues: Unremarkable. IMPRESSION: Nonspecific degenerative disease as described with no acute fracture or subluxation. Electronically signed by: Tameka Ren MD 11/18/22 23:[address] 11/18/22 22:04 Exam(s): CT CHEST With Contrast IV Amt: 86 ML OPTIRAY 350 EXAM: CT Chest With Intravenous Contrast CLINICAL HISTORY: Reason for exam: Trauma. TECHNIQUE: Axial computed tomography images of the chest with intravenous contrast. Automated exposure control was utilized for the study. A dose lowering technique was utilized adhering to the principles of ALARA. CONTRAST: Patient received 86 ML OPTIRAY 350 of IV contrast COMPARISON: 12/11/2017. FINDINGS: Lungs: Minimal posterior dependent atelectasis otherwise normal lung parenchyma. Pleural space: Unremarkable. No pneumothorax. No significant effusion. Heart: Unremarkable. No cardiomegaly. No significant pericardial effusion. No significant coronary artery calcifications. Bones/joints: Unremarkable. No acute fracture. No dislocation. Soft tissues: Unremarkable. Vasculature: Unremarkable. No thoracic aortic aneurysm. Lymph nodes: Unremarkable. No enlarged lymph nodes. IMPRESSION: 1. Minimal posterior dependent atelectasis otherwise no acute cardiopulmonary disease. 2. No pleural effusion or pneumothorax.. Electronically signed by: Tameka Ren MD 11/18/22 23:[address] 11/18/22 22:04 Exam(s): CT HEAD Without Contrast EXAM: CT Head Without Intravenous Contrast CLINICAL HISTORY: Reason for exam: Trauma. TECHNIQUE: Axial computed tomography images of the head/brain without intravenous contrast. Automated exposure control was utilized for the study. A dose lowering technique was utilized adhering to the principles of ALARA. COMPARISON: None. FINDINGS: Brain: Unremarkable. No hemorrhage. No significant white matter disease. No edema. Ventricles: Unremarkable. No ventriculomegaly. Bones/joints: Unremarkable. No acute fracture. Soft tissues: Unremarkable. Sinuses: Unremarkable as visualized. No acute sinusitis. Mastoid air cells: Unremarkable as visualized. No mastoid effusion. IMPRESSION: No acute intracranial process. Electronically signed by: Tameka Ren MD 11/18/22 23:23 PM Brain MRI 11/19/22 02:31 Brain MRI WITH AND WITHOUT CONTRAST HISTORY: Seizure. TECHNIQUE: Multiplanar multisequence MRI of the brain was performed both before and after the intravenous administration of contrast. COMPARISON STUDY: None. FINDINGS: There are no areas of restricted diffusion to suggest acute infarction. The midline structures are intact. The paranasal sinuses are clear. The mastoid air cells are clear. The ventricles and sulci are within normal limits for age. There is no mass, hematoma, midline shift. The major vascular flow-voids at the skull base are well maintained. Postcontrast sequences show no areas of abnormal enhancement. Incidental note is made of a small developmental venous anomaly within the right occipital lobe. This is considered to be a normal variant. IMPRESSION: No acute intracranial abnormality. ACT 112: Negative or not required by law. Electronically signed by: Dinesh Bourne M.D. 11/19/2022 8:17 AM EEG-- diffuse slowing but no electrographic seizure or epileptogenic discharge.
--- NOTE | 2022-11-19 16:06 | Hospitalist Progress Note ---
Date of Service November 19, 2022 Assessment & Plan (1) Seizure: Plan: Possible alcohol withdrawal seizures Noted by the daughter at home No more seizures since admission Appreciate neurology input and recommendation He is not allowed to drive for next 6 months until being evaluated by neurology and cleared for driving EEG and MRI have been negative Seizure precaution Possible suicidality, history mood disorder Appreciate psychiatric input and recommendation Suicidal ideation has been ruled out Antidepressant medications have been started Patient daughter requesting updates from providers. Ms. Madiha Leigh, contact #[phone]. (2) Alcohol use disorder, severe, dependence: Plan: History of alcohol use disorder with dependence Has had more drink prior to admission No evidence of withdrawal symptoms as of yet He is on alcohol withdrawal protocol Appreciate psychiatric input and recommendation Suicidal ideation has been ruled out He has been getting medications for depression He will need to go to rehab (3) Diabetes mellitus: Plan: Insulin requiring Continue SSI and blood sugar monitor (4) Hypertension: Plan: Blood pressure is controlled Plan DVT prophylaxis Subcu Lovenox CODE STATUS Full Admission and Anticipated Discharge Date Admission Date: November 19, 2022 Subjective 11/19/2022 The patient was seen and examined in medical telemetry unit He has been feeling better since admission and there is no suicidal ideation No withdrawal symptoms as of yet Denies any significant symptoms except depression Review of Systems Review of Systems: All systems reviewed and are unremarkable except as noted below Physical Exam Physical Exam: Lying in bed comfortably Constitutional: well developed, well nourished, + ill appearing and average body habitus Eyes: PERRL, conjunctivae normal, anicteric sclerae ENMT: external ear and nose normal, oropharynx normal Neck: trachea midline, no thyromegaly Respiratory: no respiratory distress Auscultation: lungs clear to auscultation bilaterally Cardiovascular: Rate/Rhythm: regular rate and regular rhythm; not tachycardic Heart Sounds: normal S1 and normal S2; no murmur Extremities: no edema Gastrointestinal (Abdomen): Inspection/Auscultation: normal bowel sounds; abdomen not distended Percussion/Palpation: abdomen soft; abdomen nontender Musculoskeletal: No acute arthritis involving any joint Neurologic: normal touch/pain/proprioception and moves all extremities; no focal motor deficits No tremors involving the outstretched hands Lymphatic: no cervical or axillary lymphadenopathy Results & Data Results & Data Vital Signs (Past 12 Hours) Vital Signs Temp Pulse Pulse Pulse Resp BP BP 11/19/22 15:46 36.6 C 63 16 121/69 11/19/22 15:42 70 11/19/22 08:36 65 16 115/69 11/19/22 06:06 68 17 106/64 11/19/22 04:27 11/19/22 04:26 83 16 109/61 Pulse Ox Pulse Ox O2 Del Method O2 Del Method 11/19/22 15:46 96 Room Air 11/19/22 15:42 11/19/22 08:36 96 Room Air 11/19/22 06:06 95 Room Air 11/19/22 04:27 96 Room Air 11/19/22 04:26 95 Room Air Laboratory Results Short CBC 11/18/22 11/19/22 Range/Units 22:10 05:44 WBC 8.63 5.76 (4.8-10.8) K/ul Hgb 15.1 13.7 L (14.0-18.0) g/dl Hct 42.6 38.6 L (42.0-52.0) % Plt Count 148 137 (130-400) K/uL BMP 11/18/22 11/19/22 22:10 05:44 Sodium 138 139 Potassium 3.6 3.9 Chloride 99 105 Carbon Dioxide 28 27 BUN 15 13 Creatinine 0.92 0.71 Glucose 177 H 107 H Calcium 9.0 8.3 L Cardiac Enzymes 11/18/22 Range/Units 22:10 Total Creatine Kinase 76 (30-223) U/L Liver Function 11/18/22 Range/Units 22:10 Total Bilirubin 0.6 (0.2-1.0) mg/dl AST 23 (13-39) U/L ALT 29 (7-52) U/L Alkaline Phosphatase 63 (34-104) U/L Albumin 4.2 (3.4-5.0) gm/dl Urine 11/19/22 Range/Units 01:15 Urine Color Yellow Urine Appearance Clear (Clear) Urine pH 5.5 (4.5-7.5) Ur Specific [place] > 1.045 H (1.000-1.030) Urine Protein Negative (Negative) Urine Glucose (UA) 3+ H (Negative) Medications Administered Current Inpatient Medications Acetaminophen (Acetaminophen 325 Mg Tab) 650 mg PO Q4H PRN PRN Reason: Pain or Fever Stop: 12/19/22 03:21 Buspirone HCl (Buspirone 15 Mg Tab) 15 mg PO TID [facility] Stop: 12/19/22 08:59 Last Admin: 11/19/22 13:24 Dose: 15 mg Citalopram Hydrobromide (Citalopram 20 Mg Tab) 30 mg PO DAILY [facility] Stop: 12/19/22 08:59 Last Admin: 11/19/22 08:59 Dose: 30 mg Dextrose (Dextrose 50% 50 Ml Syringe) 25 - 50 ml IV UD PRN; Protocol PRN Reason: Hypoglycemia Protocol Stop: 12/19/22 03:21 Enoxaparin Sodium (Enoxaparin Inj 40 Mg/0.4 Ml Syr) 40 mg SQ QAM [facility] Stop: 12/19/22 08:59 Last Admin: 11/19/22 08:58 Dose: 40 mg Famotidine (Famotidine 20 Mg Tab) 20 mg PO DAILY [facility] Stop: 12/19/22 08:59 Last Admin: 11/19/22 09:00 Dose: 20 mg Folic Acid (Folic Acid 1 Mg Tab) 1 mg PO QAM [facility] Stop: 12/20/22 08:59 Gabapentin (Gabapentin 600 Mg Tab) 600 mg PO Q24H [facility] Stop: 11/22/22 18:01 Gabapentin (Gabapentin 600 Mg Tab) 600 mg PO Q12H [facility] Stop: 11/21/22 18:01 Gabapentin (Gabapentin 600 Mg Tab) 600 mg PO Q8H [facility] Stop: 11/20/22 18:01 Gabapentin (Gabapentin 600 Mg Tab) 600 mg PO Q6H [facility] Stop: 11/19/22 18:01 Last Admin: 11/19/22 12:32 Dose: 600 mg Glucagon (Glucagon For Inj 1 Mg Vial) 1 mg SQ UD PRN; Protocol PRN Reason: Hypoglycemia Protocol Stop: 12/19/22 03:21 Glucose (Glucose 10 Tab/Tube) 4 - 8 tab PO UD PRN; Protocol PRN Reason: Hypoglycemia Treatment Stop: 12/19/22 03:21 Glucose (Glucose 40% Gel 15 Gm Tube) 15 - 30 gm PO UD PRN; Protocol PRN Reason: Hypoglycemia Protocol Stop: 12/19/22 03:21 Promethazine HCl 6.25 mg/ (Sodium Chloride) 50.25 mls @ 201 mls/hr IV Q6H PRN PRN Reason: Nausea And Vomiting Stop: 12/19/22 03:21 Insulin Aspart (Insulin Aspart Per Unit Charge) 0 units SC ACHS [facility] Stop: 12/19/22 03:21 Last Admin: 11/19/22 12:32 Dose: Not Given Insulin Glargine (Lantus Per Unit Charge) 10 units SQ DAILY [facility] Stop: 12/19/22 08:59 Last Admin: 11/19/22 09:14 Dose: Not Given Lisinopril (Lisinopril 5 Mg Tab) 5 mg PO DAILY [facility] Stop: 12/19/22 08:59 Last Admin: 11/19/22 09:00 Dose: 5 mg Lorazepam (Lorazepam 2 Mg/1 Ml Vial) 1 mg IV Q10M PRN PRN Reason: seizures Stop: 12/19/22 02:30 Lorazepam (Lorazepam 2 Mg/1 Ml Vial) 3 mg IV ONCE PRN; Protocol PRN Reason: EtOH Withdrawal AWSS Score 10+ Lorazepam (Lorazepam 2 Mg/1 Ml Vial) 2 mg IV UD PRN; Protocol PRN Reason: EtOH Withdrawal AWSS Score 8,9 Stop: 12/19/22 03:21 Lorazepam (Lorazepam 2 Mg/1 Ml Vial) 1 mg IV UD PRN; Protocol PRN Reason: EtOH Withdrawal AWSS Score 6,7 Stop: 12/19/22 03:21 Miscellaneous (Carbohydrates For Hypoglycemia ) 15 - 30 gm PO UD PRN PRN Reason: Hypoglycemia Protocol Stop: 12/19/22 03:21 [facility]ivit[facility] ([facility]amin Tab) [facility] [place] Stop: 12/20/22 08:59 Pantoprazole Sodium (Pantoprazole 40 Mg Tab) 40 mg PO DAILYBB [facility] Stop: 12/19/22 06:29 Last Admin: 11/19/22 05:54 Dose: 40 mg Thiamine HCl (Thiamine Hcl 100 Mg Tab) 100 mg PO QAM [facility] Stop: 12/20/22 08:59
[2022-11-19] MEDS ORDERED: NITROGLYCERIN SL 0.4 MG/TAB TAB SL STA (23:39)
[2022-11-19] MEDS: ACETAMINOPHEN 325 MG TAB PO PRN (23:48)
[2022-11-20] MEDS: GABAPENTIN 600 MG TAB PO SCH ×3 (01:12→17:48)
[2022-11-20] MEDS: PANTOprazole 40 MG TAB PO SCH (05:38)
[2022-11-20] MEDS: INSULIN ASPART PER UNIT CHARGE SC SCH ×4 (08:29→20:49)
[2022-11-20] MEDS: CITALOPRAM 20 MG TAB PO SCH (08:30)
[2022-11-20] MEDS: busPIRone 15 MG TAB PO SCH ×3 (08:30→20:49)
[2022-11-20] MEDS: MULTIVITAMIN TAB PO SCH (08:31)
[2022-11-20] MEDS: lisinopril 5 MG TAB PO SCH (08:31)
[2022-11-20] MEDS: ENOXAPARIN INJ 40 MG/0.4 ML SYR SQ SCH (08:31)
[2022-11-20] MEDS: THIAMINE HCL 100 MG TAB PO SCH (08:31)
[2022-11-20] MEDS: FAMOTIDINE 20 MG TAB PO SCH (08:31)
[2022-11-20] MEDS: FOLIC ACID 1 MG TAB PO SCH (08:31)
[2022-11-20] MEDS: LANTUS PER UNIT CHARGE SQ SCH (08:35)
[2022-11-20 09:12] LABS: Basophils # (auto) 0.03 K/uL (0-0.2); Basophils % (auto) 0.6 %; Eosinophils # (auto) 0.04 K/uL (0-0.50); Eosinophils % (auto) 0.8 %; Hematocrit (blood only) 42.2 % (42.0-52.0); Hemoglobin 14.7 g/dl (14.0-18.0); Immature Granulocytes # (auto) 0.02 K/uL (0.01-0.20); Immature Granulocytes % (auto) 0.4 %; Lymphocytes % (auto) 25.2 %; Mean Corpuscular Hgb Conc 34.8 g/dL (32.0-36.0); Mean Platelet Volume 12.3 fL (9.4-12.4); Monocytes % (auto) 6.3 %; Neutrophils # (auto) 3.18 K/uL (1.40-6.50); Neutrophils % (auto) 66.7 %; Platelet Count 136 K/uL (130-400); RDW Coefficient of Variation 11.6 % (11.5-14.5); RDW Standard Deviation 37.4 fL (36.4-46.3); Red Blood Count 4.74 M/uL (4.70-6.10); White Blood Count 4.77 K/ul (4.8-10.8)
[2022-11-20 10:14] LABS: Troponin I High Sensitivity 3.3 pg/ml (0-20)
--- NOTE | 2022-11-20 12:35 | Hospitalist Progress Note ---
Date of Service November 20, 2022 Assessment & Plan (1) Seizure: Plan: Possible alcohol withdrawal seizures Noted by the daughter at home No more seizures since admission Appreciate neurology input and recommendation He is not allowed to drive for next 6 months until being evaluated by neurology and cleared for driving EEG and MRI have been negative Seizure precaution-no more seizure episode Possible suicidality, history mood disorder Appreciate psychiatric input and recommendation Suicidal ideation has been ruled out Antidepressant medications have been started Patient daughter requesting updates from providers. Ms. Madiha Leigh, contact #[phone]. (2) Alcohol use disorder, severe, dependence: Plan: History of alcohol use disorder with dependence Has had more drink prior to admission No evidence of withdrawal symptoms as of yet He is on alcohol withdrawal protocol Appreciate psychiatric input and recommendation Suicidal ideation has been ruled out He has been getting medications for depression Has minimal withdrawal symptoms mainly in the form of tremors involving the outstretched hands but no palpitation (3) Diabetes mellitus: Plan: Insulin requiring Continue SSI and blood sugar monitor (4) Hypertension: Plan: Blood pressure is controlled Plan DVT prophylaxis Subcu Lovenox CODE STATUS Full Admission and Anticipated Discharge Date Admission Date: November 19, 2022 Subjective 11/19/2022 The patient was seen and examined in medical telemetry unit He has been feeling better since admission and there is no suicidal ideation No withdrawal symptoms as of yet Denies any significant symptoms except depression 11/20/2022 The patient was seen and examined in medical telemetry unit He has minimal tremor with outstretched hands but denies any other symptoms He is willing to go to inpatient rehab for his alcohol abuse Review of Systems Review of Systems: All systems reviewed and are unremarkable except as noted below Physical Exam Physical Exam: Lying in bed comfortably Constitutional: well developed, well nourished, + ill appearing and average body habitus Eyes: PERRL, conjunctivae normal, anicteric sclerae ENMT: external ear and nose normal, oropharynx normal Neck: trachea midline, no thyromegaly Respiratory: no respiratory distress Auscultation: lungs clear to auscultation bilaterally Cardiovascular: Rate/Rhythm: regular rate and regular rhythm; not tachycardic Heart Sounds: normal S1 and normal S2; no murmur Extremities: no edema Gastrointestinal (Abdomen): Inspection/Auscultation: normal bowel sounds; abdomen not distended Percussion/Palpation: abdomen soft; abdomen nontender Musculoskeletal: No acute arthritis involving any of the joint Neurologic: normal touch/pain/proprioception and moves all extremities; no focal motor deficits Psychiatric: A+Ox3, euthymic affect Lymphatic: no cervical or axillary lymphadenopathy Results & Data Results & Data Vital Signs (Past 12 Hours) Vital Signs Temp Pulse Pulse Resp BP BP Pulse Ox 11/20/22 11:37 36.6 C 63 16 103/60 96 11/20/22 07:55 56 L 11/20/22 06:41 36.7 C 68 18 118/68 95 11/20/22 04:14 36.7 C 70 18 111/66 118/69 96 11/20/22 01:00 56 L O2 Del Method 11/20/22 11:37 Room Air 11/20/22 07:55 11/20/22 06:41 Room Air 11/20/22 04:14 Room Air 11/20/22 01:00 Laboratory Results Short CBC 11/20/22 Range/Units 08:06 WBC 4.77 L (4.8-10.8) K/ul Hgb 14.7 (14.0-18.0) g/dl Hct 42.2 (42.0-52.0) % Plt Count 136 (130-400) K/uL Medications Administered Current Inpatient Medications Acetaminophen (Acetaminophen 325 Mg Tab) 650 mg PO Q4H PRN PRN Reason: Pain or Fever Stop: 12/19/22 03:21 Last Admin: 11/19/22 23:48 Dose: 650 mg Buspirone HCl (Buspirone 15 Mg Tab) 15 mg PO TID [facility] Stop: 12/19/22 08:59 Last Admin: 11/20/22 08:30 Dose: 15 mg Citalopram Hydrobromide (Citalopram 20 Mg Tab) 30 mg PO DAILY [facility] Stop: 12/19/22 08:59 Last Admin: 11/20/22 08:30 Dose: 30 mg Dextrose (Dextrose 50% 50 Ml Syringe) 25 - 50 ml IV UD PRN; Protocol PRN Reason: Hypoglycemia Protocol Stop: 12/19/22 03:21 Enoxaparin Sodium (Enoxaparin Inj 40 Mg/0.4 Ml Syr) 40 mg SQ QAM [facility] Stop: 12/19/22 08:59 Last Admin: 11/20/22 08:31 Dose: 40 mg Famotidine (Famotidine 20 Mg Tab) 20 mg PO DAILY [facility] Stop: 12/19/22 08:59 Last Admin: 11/20/22 08:31 Dose: 20 mg Folic Acid (Folic Acid 1 Mg Tab) 1 mg PO QAM [facility] Stop: 12/20/22 08:59 Last Admin: 11/20/22 08:31 Dose: 1 mg Gabapentin (Gabapentin 600 Mg Tab) 600 mg PO Q24H [facility] Stop: 11/22/22 18:01 Gabapentin (Gabapentin 600 Mg Tab) 600 mg PO Q12H [facility] Stop: 11/21/22 18:01 Gabapentin (Gabapentin 600 Mg Tab) 600 mg PO Q8H [facility] Stop: 11/20/22 18:01 Last Admin: 11/20/22 09:41 Dose: 600 mg Glucagon (Glucagon For Inj 1 Mg Vial) 1 mg SQ UD PRN; Protocol PRN Reason: Hypoglycemia Protocol Stop: 12/19/22 03:21 Glucose (Glucose 10 Tab/Tube) 4 - 8 tab PO UD PRN; Protocol PRN Reason: Hypoglycemia Treatment Stop: 12/19/22 03:21 Glucose (Glucose 40% Gel 15 Gm Tube) 15 - 30 gm PO UD PRN; Protocol PRN Reason: Hypoglycemia Protocol Stop: 12/19/22 03:21 Promethazine HCl 6.25 mg/ (Sodium Chloride) 50.25 mls @ 201 mls/hr IV Q6H PRN PRN Reason: Nausea And Vomiting Stop: 12/19/22 03:21 Insulin Aspart (Insulin Aspart Per Unit Charge) 0 units SC ACHS [facility] Stop: 12/19/22 03:21 Last Admin: 11/20/22 12:20 Dose: 2 units Insulin Glargine (Lantus Per Unit Charge) 10 units SQ DAILY [facility] Stop: 12/19/22 08:59 Last Admin: 11/20/22 08:35 Dose: 10 units Lisinopril (Lisinopril 5 Mg Tab) 5 mg PO DAILY [facility] Stop: 12/19/22 08:59 Last Admin: 11/20/22 08:31 Dose: 5 mg Lorazepam (Lorazepam 2 Mg/1 Ml Vial) 1 mg IV Q10M PRN PRN Reason: seizures Stop: 12/19/22 02:30 Lorazepam (Lorazepam 2 Mg/1 Ml Vial) 3 mg IV ONCE PRN; Protocol PRN Reason: EtOH Withdrawal AWSS Score 10+ Lorazepam (Lorazepam 2 Mg/1 Ml Vial) 2 mg IV UD PRN; Protocol PRN Reason: EtOH Withdrawal AWSS Score 8,9 Stop: 12/19/22 03:21 Lorazepam (Lorazepam 2 Mg/1 Ml Vial) 1 mg IV UD PRN; Protocol PRN Reason: EtOH Withdrawal AWSS Score 6,7 Stop: 12/19/22 03:21 Miscellaneous (Carbohydrates For Hypoglycemia ) 15 - 30 gm PO UD PRN PRN Reason: Hypoglycemia Protocol Stop: 12/19/22 03:21 [facility]ivit[facility] ([facility] Tab) [facility] [place] Stop: 12/20/22 08:59 Last Admin: 11/20/22 08:31 Dose: 1 tab Pantoprazole Sodium (Pantoprazole 40 Mg Tab) [facility] Stop: 12/19/22 06:29 Last Admin: 11/20/22 05:38 Dose: 40 mg Thiamine HCl (Thiamine Hcl 100 Mg Tab) [facility] Stop: 12/20/22 08:59 Last Admin: 11/20/22 08:31 Dose: 100 mg
[2022-11-20 16:15] LABS: Albumin Globulin Ratio 1.5 (0.9-2); Albumin Level 3.8 gm/dl (3.4-5.0); BUN Creatinine Ratio 19.5 (10-20); Bilirubin,Total 1.1 mg/dl (0.2-1.0); Calcium 8.6 mg/dl (8.6-10.3); Creatinine Clr Calc Pharmacy 97.4 ml/min; Globulin 2.6 gm/dl (2.5-4.0); Total Protein 6.4 gm/dl (6.0-8.3)
[2022-11-20] MEDS: ACETAMINOPHEN 325 MG TAB PO PRN (20:51)
--- NOTE | 2022-11-21 05:36 | Electrocardiogram Report ---
Test Reason : Blood Pressure : / mmHG Vent. Rate : 056 BPM Atrial Rate : 056 BPM P-R Int : 142 ms QRS Dur : 092 ms QT Int : 434 ms P-R-T Axes : 063 052 068 degrees QTc Int : 418 ms Sinus bradycardia Otherwise normal ECG When compared with ECG of 18-NOV-2022 22:07, No significant change was found Confirmed by Troy Rocha ([id number]) on 11/21/2022 5:35:54 AM Referred By: REFERRED SELF Confirmed By:Troy Rocha
[2022-11-21] MEDS: PANTOprazole 40 MG TAB PO SCH (05:49)
[2022-11-21] MEDS: GABAPENTIN 600 MG TAB PO SCH ×2 (05:49→17:31)
[2022-11-21] MEDS: FOLIC ACID 1 MG TAB PO SCH (08:31)
[2022-11-21] MEDS: MULTIVITAMIN TAB PO SCH (08:31)
[2022-11-21] MEDS: CITALOPRAM 20 MG TAB PO SCH (08:31)
[2022-11-21] MEDS: THIAMINE HCL 100 MG TAB PO SCH (08:31)
[2022-11-21] MEDS: busPIRone 15 MG TAB PO SCH ×3 (08:31→21:19)
[2022-11-21] MEDS: ENOXAPARIN INJ 40 MG/0.4 ML SYR SQ SCH (08:31)
[2022-11-21] MEDS: FAMOTIDINE 20 MG TAB PO SCH (08:32)
[2022-11-21] MEDS: lisinopril 5 MG TAB PO SCH (08:32)
[2022-11-21] MEDS: LANTUS PER UNIT CHARGE SQ SCH (08:37)
[2022-11-21] MEDS: INSULIN ASPART PER UNIT CHARGE SC SCH ×4 (08:37→21:19)
--- NOTE | 2022-11-21 16:12 | Hospitalist Progress Note ---
Date of Service November 21, 2022 Assessment & Plan (1) Seizure: Plan: Possible alcohol withdrawal seizures Noted by the daughter at home No more seizures since admission Appreciate neurology input and recommendation He is not allowed to drive for next 6 months until being evaluated by neurology and cleared for driving EEG and MRI have been negative Seizure precaution-no more seizure episode Possible suicidality, history mood disorder Appreciate psychiatric input and recommendation Suicidal ideation has been ruled out Antidepressant medications have been started Patient daughter requesting updates from providers. Ms. Madiha Leigh, contact #[phone]. (2) Alcohol use disorder, severe, dependence: Plan: History of alcohol use disorder with dependence Has had more drink prior to admission No evidence of withdrawal symptoms as of yet He is on alcohol withdrawal protocol Appreciate psychiatric input and recommendation Suicidal ideation has been ruled out He has been getting medications for depression Has minimal withdrawal symptoms mainly in the form of tremors involving the outstretched hands but no palpitation He remains hemodynamically stable without tachycardia and/or any unstable 2 with movement Again minimum tremors noted with outstretched hands on examination His labs remain unremarkable (3) Diabetes mellitus: Plan: Insulin requiring Continue SSI and blood sugar monitor (4) Hypertension: Plan: Blood pressure is controlled Plan DVT prophylaxis Subcu Lovenox CODE STATUS Full Likely be transferred to the inpatient alcohol rehab facility tomorrow Admission and Anticipated Discharge Date Admission Date: November 19, 2022 Subjective 11/19/2022 The patient was seen and examined in medical telemetry unit He has been feeling better since admission and there is no suicidal ideation No withdrawal symptoms as of yet Denies any significant symptoms except depression 11/20/2022 The patient was seen and examined in medical telemetry unit He has minimal tremor with outstretched hands but denies any other symptoms He is willing to go to inpatient rehab for his alcohol abuse 11/21/2022 The patient was seen and examined in medical telemetry unit He has been stable and does have minimal tremor of the outstretched hands No tachycardia and no palpitation and remains hemodynamically stable Review of Systems Review of Systems: All systems reviewed and are unremarkable except as noted below Physical Exam Physical Exam: Lying in bed comfortably Constitutional: well developed, well nourished, + ill appearing and average body habitus Eyes: PERRL, conjunctivae normal, anicteric sclerae ENMT: external ear and nose normal, oropharynx normal Neck: trachea midline, no thyromegaly Respiratory: no respiratory distress Auscultation: lungs clear to auscultation bilaterally Cardiovascular: Rate/Rhythm: regular rate and regular rhythm; not tachycardic Heart Sounds: normal S1 and normal S2; no murmur Extremities: no edema Gastrointestinal (Abdomen): Inspection/Auscultation: normal bowel sounds; abdomen not distended Percussion/Palpation: abdomen soft; abdomen nontender Musculoskeletal: No acute arthritis involving any joint Neurologic: normal touch/pain/proprioception and moves all extremities; no focal motor deficits Psychiatric: A+Ox3, euthymic affect Lymphatic: no cervical or axillary lymphadenopathy Results & Data Results & Data Vital Signs (Past 12 Hours) Vital Signs Temp Pulse Pulse Resp BP Pulse Ox O2 Del Method 11/21/22 14:59 70 11/21/22 12:16 36.6 C 63 16 105/62 96 Room Air 11/21/22 08:00 Room Air 11/21/22 08:03 36.6 C 58 L 16 105/66 97 Room Air 11/21/22 07:22 59 L Laboratory Results [facility] 11/20/22 08:06 Sodium 137 Potassium 4.0 Chloride 102 Carbon Dioxide 26 BUN 16 Creatinine 0.82 Glucose 99 Calcium 8.6 Liver Function 11/20/22 Range/Units 08:06 Total Bilirubin 1.1 H D (0.2-1.0) mg/dl AST 24 (13-39) U/L ALT 26 (7-52) U/L Alkaline Phosphatase 56 (34-104) U/L Albumin 3.8 (3.4-5.0) gm/dl Medications Administered Current Inpatient Medications Acetaminophen (Acetaminophen 325 Mg Tab) 650 mg PO Q4H PRN PRN Reason: Pain or Fever Stop: 12/19/22 03:21 Last Admin: 11/20/22 20:51 Dose: 650 mg Buspirone HCl (Buspirone 15 Mg Tab) 15 mg PO TID [facility] Stop: 12/19/22 08:59 Last Admin: 11/21/22 14:20 Dose: 15 mg Citalopram Hydrobromide (Citalopram 20 Mg Tab) 30 mg PO DAILY [facility] Stop: 12/19/22 08:59 Last Admin: 11/21/22 08:31 Dose: 30 mg Dextrose (Dextrose 50% 50 Ml Syringe) 25 - 50 ml IV UD PRN; Protocol PRN Reason: Hypoglycemia Protocol Stop: 12/19/22 03:21 Enoxaparin Sodium (Enoxaparin Inj 40 Mg/0.4 Ml Syr) 40 mg SQ QAM [facility] Stop: 12/19/22 08:59 Last Admin: 11/21/22 08:31 Dose: 40 mg Famotidine (Famotidine 20 Mg Tab) 20 mg PO DAILY [facility] Stop: 12/19/22 08:59 Last Admin: 11/21/22 08:32 Dose: 20 mg Folic Acid (Folic Acid 1 Mg Tab) 1 mg PO QAM [facility] Stop: 12/20/22 08:59 Last Admin: 11/21/22 08:31 Dose: 1 mg Gabapentin (Gabapentin 600 Mg Tab) 600 mg PO Q24H [facility] Stop: 11/22/22 18:01 Gabapentin (Gabapentin 600 Mg Tab) 600 mg PO Q12H [facility] Stop: 11/21/22 18:01 Last Admin: 11/21/22 05:49 Dose: 600 mg Glucagon (Glucagon For Inj 1 Mg Vial) 1 mg SQ UD PRN; Protocol PRN Reason: Hypoglycemia Protocol Stop: 12/19/22 03:21 Glucose (Glucose 10 Tab/Tube) 4 - 8 tab PO UD PRN; Protocol PRN Reason: Hypoglycemia Treatment Stop: 12/19/22 03:21 Glucose (Glucose 40% Gel 15 Gm Tube) 15 - 30 gm PO UD PRN; Protocol PRN Reason: Hypoglycemia Protocol Stop: 12/19/22 03:21 Promethazine HCl 6.25 mg/ (Sodium Chloride) 50.25 mls @ 201 mls/hr IV Q6H PRN PRN Reason: Nausea And Vomiting Stop: 12/19/22 03:21 Insulin Aspart (Insulin Aspart Per Unit Charge) 0 units SC ACHS [facility] Stop: 12/19/22 03:21 Last Admin: 11/21/22 12:30 Dose: 6 units Insulin Glargine (Lantus Per Unit Charge) 10 units SQ DAILY [facility] Stop: 12/19/22 08:59 Last Admin: 11/21/22 08:37 Dose: 10 units Lisinopril (Lisinopril 5 Mg Tab) 5 mg PO DAILY [facility] Stop: 12/19/22 08:59 Last Admin: 11/21/22 08:32 Dose: 5 mg Lorazepam (Lorazepam 2 Mg/1 Ml Vial) 1 mg IV Q10M PRN PRN Reason: seizures Stop: 12/19/22 02:30 Lorazepam (Lorazepam 2 Mg/1 Ml Vial) 3 mg IV ONCE PRN; Protocol PRN Reason: EtOH Withdrawal AWSS Score 10+ Lorazepam (Lorazepam 2 Mg/1 Ml Vial) 2 mg IV UD PRN; Protocol PRN Reason: EtOH Withdrawal AWSS Score 8,9 Stop: 12/19/22 03:21 Lorazepam (Lorazepam 2 Mg/1 Ml Vial) 1 mg IV UD PRN; Protocol PRN Reason: EtOH Withdrawal AWSS Score 6,7 Stop: 12/19/22 03:21 Miscellaneous (Carbohydrates For Hypoglycemia ) 15 - 30 gm PO UD PRN PRN Reason: Hypoglycemia Protocol Stop: 12/19/22 03:21 [facility]ivit[facility] ([facility]itamin Tab) [facility] [place]: 12/20/22 08:59 Last Admin: 11/21/22 08:31 Dose: 1 tab Pantoprazole Sodium (Pantoprazole 40 Mg Tab) [facility] Stop: 12/19/22 06:29 Last Admin: 11/21/22 05:49 Dose: 40 mg Thiamine HCl (Thiamine Hcl 100 Mg Tab) [facility] [place]: 12/20/22 08:59 Last Admin: 11/21/22 08:31 Dose: 100 mg
[2022-11-22] MEDS: PANTOprazole 40 MG TAB PO SCH (05:59)
[2022-11-22 06:26] LABS: Albumin Globulin Ratio 1.4 (0.9-2); Albumin Level 3.8 gm/dl (3.4-5.0); BUN Creatinine Ratio 16.7 (10-20); Bilirubin,Total 0.5 mg/dl (0.2-1.0); Calcium 8.9 mg/dl (8.6-10.3); Creatinine Clr Calc Pharmacy 83.2 ml/min; Est GFR (African American) 104.2 ml/min; Est GFR (Non-African American) 89.9 ml/min; Globulin 2.8 gm/dl (2.5-4.0); Phosphorus 3.3 mg/dl (2.5-4.9); Potassium 4.3 mmol/L (3.5-5.1); Total Protein 6.6 gm/dl (6.0-8.3)
[2022-11-22] MEDS: busPIRone 15 MG TAB PO SCH (07:56)
[2022-11-22] MEDS: FAMOTIDINE 20 MG TAB PO SCH (07:56)
[2022-11-22] MEDS: MULTIVITAMIN TAB PO SCH (07:56)
[2022-11-22] MEDS: CITALOPRAM 20 MG TAB PO SCH (07:57)
[2022-11-22] MEDS: THIAMINE HCL 100 MG TAB PO SCH (07:57)
[2022-11-22] MEDS: FOLIC ACID 1 MG TAB PO SCH (07:57)
[2022-11-22] MEDS: lisinopril 5 MG TAB PO SCH (07:57)
[2022-11-22] MEDS: ENOXAPARIN INJ 40 MG/0.4 ML SYR SQ SCH (07:58)
[2022-11-22] MEDS: LANTUS PER UNIT CHARGE SQ SCH (08:15)
[2022-11-22] MEDS: INSULIN ASPART PER UNIT CHARGE SC SCH ×2 (08:15→12:13)
--- NOTE | 2022-11-22 10:05 | Hospitalist Progress Note ---
Date of Service November 22, 2022 Assessment & Plan (1) Seizure: Plan: Possible alcohol withdrawal seizures Noted by the daughter at home No more seizures since admission Appreciate neurology input and recommendation He is not allowed to drive for next 6 months until being evaluated by neurology and cleared for driving EEG and MRI have been negative Seizure precaution-no more seizure episode Will need to be an appointment with neurologist after discharge from the rehab facility Possible suicidality, history mood disorder Appreciate psychiatric input and recommendation Suicidal ideation has been ruled out Antidepressant medications have been started Patient daughter requesting updates from providers. Ms. Madiha Leigh, contact #[phone]. (2) Alcohol use disorder, severe, dependence: Plan: History of alcohol use disorder with dependence Has had more drink prior to admission No evidence of withdrawal symptoms as of yet He is on alcohol withdrawal protocol Appreciate psychiatric input and recommendation Suicidal ideation has been ruled out He has been getting medications for depression Has minimal withdrawal symptoms mainly in the form of tremors involving the outstretched hands but no palpitation He remains hemodynamically stable without tachycardia and/or any unstable 2 with movement Again minimum tremors noted with outstretched hands on examination His labs remain unremarkable He will be discharged to the inpatient rehab facility at [facility] (3) Diabetes mellitus: Plan: Insulin requiring Continue SSI and blood sugar monitor (4) Hypertension: Plan: Blood pressure is controlled Plan DVT prophylaxis Subcu Lovenox CODE STATUS Full Will be discharged to inpatient drug and alcohol rehab at [facility] this afternoon Admission and Anticipated Discharge Date Admission Date: November 19, 2022 Subjective 11/19/2022 The patient was seen and examined in medical telemetry unit He has been feeling better since admission and there is no suicidal ideation No withdrawal symptoms as of yet Denies any significant symptoms except depression 11/20/2022 The patient was seen and examined in medical telemetry unit He has minimal tremor with outstretched hands but denies any other symptoms He is willing to go to inpatient rehab for his alcohol abuse 11/21/2022 The patient was seen and examined in medical telemetry unit He has been stable and does have minimal tremor of the outstretched hands No tachycardia and no palpitation and remains hemodynamically stable 11/22/2022 The patient was seen and examined in medical telemetry unit He has been stable and denies any significant symptoms No problem with walking and does not have any symptoms of withdrawal Remains hemodynamically stable to be discharged to the inpatient rehab facility Review of Systems Review of Systems: All systems reviewed and are unremarkable except as noted below Physical Exam Physical Exam: Lying in bed comfortably Constitutional: well developed, well nourished, + ill appearing and average body habitus Eyes: PERRL, conjunctivae normal, anicteric sclerae ENMT: external ear and nose normal, oropharynx normal Neck: trachea midline, no thyromegaly Respiratory: no respiratory distress Auscultation: lungs clear to auscultation bilaterally Cardiovascular: Rate/Rhythm: regular rate and regular rhythm; not tachycardic Heart Sounds: normal S1 and normal S2; no murmur Extremities: no edema Gastrointestinal (Abdomen): Inspection/Auscultation: normal bowel sounds; abdomen not distended Percussion/Palpation: abdomen soft; abdomen nontender Musculoskeletal: No acute arthritis involving any joint Neurologic: normal touch/pain/proprioception and moves all extremities; no focal motor deficits Does not have any tremors involving the outstretched hands today Psychiatric: A+Ox3, euthymic affect Lymphatic: no cervical or axillary lymphadenopathy Results & Data Results & Data Vital Signs (Past 12 Hours) Vital Signs Temp Pulse Pulse Pulse Resp BP BP 11/22/22 09:55 37.2 C 65 61 18 110/74 118/69 11/22/22 08:00 11/22/22 07:00 60 11/22/22 07:11 37.2 C 61 18 110/74 11/22/22 03:38 36.6 C 60 16 116/71 11/22/22 01:52 74 11/21/22 23:07 37 C 70 18 108/68 Pulse Ox O2 Del Method 11/22/22 09:55 97 11/22/22 08:00 Room Air 11/22/22 07:00 11/22/22 07:11 97 Room Air 11/22/22 03:38 96 Room Air 11/22/22 01:52 11/21/22 23:07 98 Room Air Laboratory Results [facility] 11/22/22 05:24 Sodium 135 L Potassium 4.3 Chloride 101 Carbon Dioxide 30 BUN 16 Creatinine 0.96 Glucose 273 H Calcium 8.9 Liver Function 11/22/22 Range/Units 05:24 Total Bilirubin 0.5 D (0.2-1.0) mg/dl AST 20 (13-39) U/L ALT 29 (7-52) U/L Alkaline Phosphatase 56 (34-104) U/L Albumin 3.8 (3.4-5.0) gm/dl Medications Administered Current Inpatient Medications Acetaminophen (Acetaminophen 325 Mg Tab) 650 mg PO Q4H PRN PRN Reason: Pain or Fever Stop: 12/19/22 03:21 Last Admin: 11/20/22 20:51 Dose: 650 mg Buspirone HCl (Buspirone 15 Mg Tab) 15 mg PO TID LEANNA Stop: 12/19/22 08:59 Last Admin: 11/22/22 07:56 Dose: 15 mg Citalopram Hydrobromide (Citalopram 20 Mg Tab) 30 mg PO DAILY LEANNA Stop: 12/19/22 08:59 Last Admin: 11/22/22 07:57 Dose: 30 mg Dextrose (Dextrose 50% 50 Ml Syringe) 25 - 50 ml IV UD PRN; Protocol PRN Reason: Hypoglycemia Protocol Stop: 12/19/22 03:21 Enoxaparin Sodium (Enoxaparin Inj 40 Mg/0.4 Ml Syr) 40 mg SQ QAM LEANNA Stop: 12/19/22 08:59 Last Admin: 11/22/22 07:58 Dose: 40 mg Famotidine (Famotidine 20 Mg Tab) 20 mg PO DAILY COUNT INCLUDES THE [facility] Stop: 12/19/22 08:59 Last Admin: 11/22/22 07:56 Dose: 20 mg Folic Acid (Folic Acid 1 Mg Tab) 1 mg PO QAM LEANNA Stop: 12/20/22 08:59 Last Admin: 11/22/22 07:57 Dose: 1 mg Gabapentin (Gabapentin 600 Mg Tab) 600 mg PO Q24H LEANNA Stop: 11/22/22 18:01 Glucagon (Glucagon For Inj 1 Mg Vial) 1 mg SQ UD PRN; Protocol PRN Reason: Hypoglycemia Protocol Stop: 12/19/22 03:21 Glucose (Glucose 10 Tab/Tube) 4 - 8 tab PO UD PRN; Protocol PRN Reason: Hypoglycemia Treatment Stop: 12/19/22 03:21 Glucose (Glucose 40% Gel 15 Gm Tube) 15 - 30 gm PO UD PRN; Protocol PRN Reason: Hypoglycemia Protocol Stop: 12/19/22 03:21 Promethazine HCl 6.25 mg/ (Sodium Chloride) 50.25 mls @ 201 mls/hr IV Q6H PRN PRN Reason: Nausea And Vomiting Stop: 12/19/22 03:21 Insulin Aspart (Insulin Aspart Per Unit Charge) 0 units SC ACHS COUNT INCLUDES THE [facility] Stop: 12/19/22 03:21 Last Admin: 11/22/22 08:15 Dose: 8 units Insulin Glargine (Lantus Per Unit Charge) 10 units SQ DAILY COUNT INCLUDES THE [facility] Stop: 12/19/22 08:59 Last Admin: 11/22/22 08:15 Dose: 10 units Lisinopril (Lisinopril 5 Mg Tab) 5 mg PO DAILY COUNT INCLUDES THE [facility] Stop: 12/19/22 08:59 Last Admin: 11/22/22 07:57 Dose: 5 mg Lorazepam (Lorazepam 2 Mg/1 Ml Vial) 1 mg IV Q10M PRN PRN Reason: seizures Stop: 12/19/22 02:30 Lorazepam (Lorazepam 2 Mg/1 Ml Vial) 3 mg IV ONCE PRN; Protocol PRN Reason: EtOH Withdrawal AWSS Score 10+ Lorazepam (Lorazepam 2 Mg/1 Ml Vial) 2 mg IV UD PRN; Protocol PRN Reason: EtOH Withdrawal AWSS Score 8,9 Stop: 12/19/22 03:21 Lorazepam (Lorazepam 2 Mg/1 Ml Vial) 1 mg IV UD PRN; Protocol PRN Reason: EtOH Withdrawal AWSS Score 6,7 Stop: 12/19/22 03:21 Miscellaneous (Carbohydrates For Hypoglycemia ) 15 - 30 gm PO UD PRN PRN Reason: Hypoglycemia Protocol Stop: 12/19/22 03:21 Multivitamins ([facility]ivitamin Tab) [facility] Stop: 12/20/22 08:59 Last Admin: 11/22/22 07:56 Dose: 1 tab Pantoprazole Sodium (Pantoprazole 40 Mg Tab) 40 mg PO DAILYBB COUNT INCLUDES THE [facility] Stop: 12/19/22 06:29 Last Admin: 11/22/22 05:59 Dose: 40 mg Thiamine HCl (Thiamine Hcl 100 Mg Tab) 100 mg PO QAM COUNT INCLUDES THE [facility] Stop: 12/20/22 08:59 Last Admin: 11/22/22 07:57 Dose: 100 mg
--- NOTE | 2022-11-22 15:58 | Discharge Summary ---
Date of Service November 22, 2022 Admission HPI Per Admitting Provider History obtained from patient, family, and records. History from patient secondary to intoxicated state. Medical history significant for hypertension, DM2 insulin requiring, GERD, mood disorder, alcohol abuse. Patient was at daughter's home yesterday when he suddenly slumped over and was noted to have 2 episodes of shaking episodes possible seizures as per daughter. No tongue biting or incontinence. No prior episodes as per daughter. Patient complaining of headache symptoms. Patient daughter concerned about possible self-harm as patient had told her that he "was going camping and and that she would never see him again." No prior suicidal attempt as per daughter. Patient brought to the ER for evaluation. 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 [employer] Admission Exam Per Admitting Provider Physical Exam: GENERAL: Intoxicated, mumbles some answers to some questions no respiratory distress, alcoholic fetor SKIN: Normal color, warm HEENT: [place] palpebral conjunctivae, no ptosis, dry buccal mucosa NECK : Supple, no tenderness CHEST : Decreased breath sounds, no tenderness HEART : RRR, no obvious murmurs ABDOMEN: Some distention, nontender EXTREMITIES : No LE swelling/tenderness, no other conspicuous deformities noted NEUROLOGIC : Intoxicated, no facial asymmetry, gait and stance not assessed Principal Diagnosis Alcohol use disorder, possible alcohol induced seizure,Type 2 diabetes, hypertension Discharge Exam Lying in bed comfortably Constitutional well developed, well nourished, + ill appearing and average body habitus Eyes PERRL, conjunctivae normal, anicteric sclerae ENMT external ear and nose normal, oropharynx normal Neck trachea midline, no thyromegaly Respiratory no respiratory distress Auscultation: lungs clear to auscultation bilaterally Cardiovascular Rate/Rhythm: regular rate and regular rhythm; not tachycardic Heart Sounds: normal S1 and normal S2; no murmur Extremities: no edema Gastrointestinal (Abdomen) Inspection/Auscultation: normal bowel sounds; abdomen not distended Percussion/Palpation: abdomen soft; abdomen nontender Neurologic normal touch/pain/proprioception and moves all extremities; no focal motor deficits Psychiatric A+Ox3, euthymic affect Lymphatic no cervical or axillary lymphadenopathy Discharge Data Allergies Allergy/AdvReac Type Severity Reaction Status Date / Time No Known Allergies Allergy Unverified 11/12/22 14:53 Consultations 11/19/22 00:17 ED Decision to Admit Stat 11/19/22 02:31 Consult Psychiatry Routine 11/19/22 03:22 Consult Neurology Routine Ordered Studies 11/18/22 22:04 CT abd pelvis IV con only Stat CT cervical spine wo con Stat CT chest diagnostic w con Stat CT head/brain wo con Stat 11/19/22 02:31 MRI Brain [MR brain seizure wo/w con] Routine Diabetes Follow up Diabetes Follow-up Needed for HgbA1c >9% Hospital Course (1) Seizure: Possible alcohol withdrawal seizures Noted by the daughter at home No more seizures since admission Appreciate neurology input and recommendation He is not allowed to drive for next 6 months until being evaluated by neurology and cleared for driving EEG and MRI have been negative Seizure precaution-no more seizure episode Will need to be an appointment with neurologist after discharge from the rehab facility Possible suicidality, history mood disorder Appreciate psychiatric input and recommendation Suicidal ideation has been ruled out Antidepressant medications have been started Patient daughter requesting updates from providers. Ms. Madiha Leigh, contact #[phone]. (2) Alcohol use disorder, severe, dependence: History of alcohol use disorder with dependence Has had more drink prior to admission No evidence of withdrawal symptoms as of yet He is on alcohol withdrawal protocol Appreciate psychiatric input and recommendation Suicidal ideation has been ruled out He has been getting medications for depression Has minimal withdrawal symptoms mainly in the form of tremors involving the outstretched hands but no palpitation He remains hemodynamically stable without tachycardia and/or any unstable 2 with movement Again minimum tremors noted with outstretched hands on examination His labs remain unremarkable He will be discharged to the inpatient rehab facility at [facility] (3) Diabetes mellitus: Insulin requiring Continue SSI and blood sugar monitor (4) Hypertension: Blood pressure is controlled Plan DVT prophylaxis Subcu Lovenox CODE STATUS Full Will be discharged to inpatient drug and alcohol rehab at [facility] this afternoon Total Time Total Time Spent Total Time Spent (In Minutes): 35 minutes Discharge Plan Discharge Items Patient Disposition: Drug & Alcohol Rehab Reason For Visit: NEW [place] SZ, ETOH ABUSE Discharge Diagnosis: Alcohol use disorder, possible alcohol induced seizure,Type 2 diabetes, hypertension Condition on Discharge: Good Activity: Resume your previous activity Non-emergency contact: Primary Care Provider Call non-emergency contact if: you have any medication questions and your symptoms worsen Follow-up/Referrals: Cachorro Lord MD [Primary Care Provider] - (Please make an appointment with your primary care doctor within 7 days following discharge from the facility) Diet: Carb Consistent or DM2 Addtl Attending Provider Instructions: Please take precautions to avoid falls Take your medications as advised You will need to get an appointment with the neurologist following discharge from the facility before you can start driving Pending Studies at Discharge: No Stand-Alone Forms: My [facility] Skilled Items Patient informed of condition?: Yes DNR: No Discharge Level of Care: Acute rehab Communicable Disease: No Discharge Prognosis: Stable Lines: None Urinary Catheter: No Medications and DC Order Prescriptions: New folic acid 1 mg Tablet 1 mg PO QAM 30 Days Qty: 30 0RF multivitamin with folic acid [Daily-Grady (with folic acid)] 400 mcg Tablet 1 tab PO QAM Qty: 30 0RF thiamine HCl (vitamin B1) 100 mg Tablet 100 mg PO QAM 30 Days Qty: 30 0RF Continued citalopram 10 mg Tablet 10 mg PO DAILY Rx Instructions: take with 20mg citalopram 20 mg Tablet 20 mg PO DAILY Rx Instructions: take with 10mg famotidine 20 mg Tablet 20 mg PO DAILY buspirone 15 mg Tablet 15 mg PO TID Jardiance 25 mg Tablet 25 mg PO DAILY insulin glargine [Lantus U-100 Insulin] 100 unit/mL Solution 35 unit SUBCUT QDD meloxicam 7.5 mg Tablet 7.5 - 15 mg PO DAILY lisinopril 5 mg Tablet 5 mg PO DAILY omeprazole 20 mg Tablet,Delayed Release (Dr/Ec) 20 mg PO DAILYBB Trulicity 4.5 mg/0.5 mL Pen Injector 4.5 mg SUBCUT WK Discharge Orders: Discharge Order (Routine); Ordered 11/22/22 Ordered By: Wild Miles/Other Patient Handouts: Substance Abuse Rehab Program, Managing Type 2 Diabetes, Alcohol Addiction Admission Data Admit Date/Time: 11/19/22 02:24 Attending Provider: Wild Espinoza Admit Provider: Oli Echols Primary Care Provider: Cachorro Lord Other Providers: Yina Dorman ; Anastasia Linder ; Bob Zhao ; Oli Echols ; Vicente Bang Other Interventions: Discharge Summary Assessment (RN) Last Done: 11/22/22 10:21
[2022-11-22] MEDS ORDERED: GABAPENTIN 600 MG TAB PO SCH (18:00)
== END 2022-11-22 12:26 | disposition alcohol treatment (31) | DRG 101 ==
LOC: ED 21:58 → EDINP 11-19 02:24 → SUATTDRO 11-19 02:24 → 2N 11-19 11:29